=== PATIENT | female | born 1955 | race Caucasian/White ===

== ENCOUNTER 2022-03-18 09:47 | Outpatient (CLI) | payer MEDICARE, BC, SELFPAY ==
--- NOTE | 2022-03-18 11:27 | W.ANESCHARGE ---
Anesthesia Charges Start Date/Time Anesthesia Start Date: 03/18/22 Anesthesia Start Time: 10:45 Stop Date/Time Anesthesia Stop Date: 03/18/22 Anesthesia Stop Time: 11:25 Summary Emergency: No
--- NOTE | 2022-03-18 12:12 | W.ANESCHARGE ---
Anesthesia Charges Start Date/Time Anesthesia Start Date: 03/18/22 Anesthesia Start Time: 10:45 Stop Date/Time Anesthesia Stop Date: 03/18/22 Anesthesia Stop Time: 11:25 Summary Emergency: No
== END 2022-03-18 09:48 | disposition home or self-care (01) ==
LOC: OP CLINIC 09:50
PROVIDERS: PCP Internal Medicine; Visit Provider Surgery
DX: Z12.11 Encounter for screening for malignant neoplasm of colon (principal); K57.30 Diverticulosis of large intestine without perforation or abscess without bleeding; K63.5 Polyp of colon; Z86.010 Personal history of colon polyps
CPT/HCPCS: 45385; 811; 88305; J2405

== ENCOUNTER 2022-06-04 15:13 | Outpatient (CLI) | payer MEDICARE, BC, SELFPAY ==
--- OUTSIDE RECORDS SUMMARY | 2022-06-04 08:36 | XMS_ITS | Clinical Summary ---
:1955 Author Organization [facility] Address [address] [place] [id number] Care Team Providers Name Role Phone EverAmandaFlower Primary Care Provider Allergies Active Allergy Reactions Severity Noted Date Comments Morphine Rash Low 02/01/2018 Medications Medication Sig Dispensed Refills Start Date End Date Status SIMVASTATIN PO Take 10 mg by 0 A ctive mouth multivitamin, Take 1 tablet by 0 Active therapeutic with mouth daily minerals (MULTI-VITAMIN) TABS tablet ASPIRIN PO Take 81 mg by 0 Activ e mouth daily Social History Tobacco Use Types Packs/Day Years Used Date Smoking Tobacco: Never Smokeless Tobacco: Never Sex Assigned at Date Recorded Not on file Last Filed Vital Signs Vital Sign Reading Time Taken Comments Blood Pressure 130/98 02/02/2018 8:18 AM CDT Pulse - - Temperature 36.7 ??C (98 ??F) 02/02/2018 6:25 AM CDT Respiratory Rate 18 02/02/2018 8:18 AM CDT Oxygen Saturation 98% 02/02/2018 8:18 AM CDT Inhaled Oxygen Concentration - - Weight 102.1 kg (225 lb) 02/01/2018 10:00 AM CDT Height 163.8 cm (5' 4.5) 02/01/2018 10:00 AM CDT Body Mass Index 38.02 02/01/2018 10:00 AM CDT Plan of Treatment Not on file Insurance Payer Benefit Plan / Subscriber ID Effective Dates Phone Addre ss Type Group BCBS BCBS OUT OF [id number] 2018-Present [phone] [address] [address] [place] [address] Care Teams Geothermal Powerplant Supervisor Relationship Specialty Start Date End Date Flower Curtis PCP - General Internal Medicine 01/23/18 [facility] [address] [place], [place] [id number]
--- OUTSIDE RECORDS SUMMARY | 2022-06-04 08:36 | XMS_ITS | Encounter Summary ---
:1955 Author Organization [facility] Address [facility] [place] [address] Care Team Providers Name Role Phone Flower Curtis Primary Care Provider Encounter Details Date Type Department Care Team Description 02/02/2018 Hospital Encounter [facility] Yessica Valderrama Preop/Phase MD Tomas II [facility] [address] [place] [address] [phone] [address] [place] [address] (Wo rk) Social History Tobacco Use Types Packs/Day Years Used Date Smoking Tobacco: Never Smokeless Tobacco: Never Sex Assigned at Date Recorded Not on file documented as of this encounter Last Filed Vital Signs Vital Sign Reading [...] Mass Index 38.02 02/01/2018 10:00 AM CDT documented in this encounter Discharge Instructions Discharge Ellie Naylor RN - 02/02/2018 8:14 AM CDT [facility] Discharge Instructions Anesthesia ([facility]) Adult Discharge Instructions For 24 hours after surgery 1. Get plenty of rest. Make arrangements to have a responsible adult stay with you for at least 6 hours after you leave the hospital. 2. Do not drive or use heavy equipment for 24 hours. 3. Do not drink alcohol for 24 hours. 4. Do not sign legal documents or make important decisions for 24 hours. 5. Avoid strenuous or risky activities. You may feel lightheaded. If so, sit for a few minutes before standing. Have someone help you get up. 6. Conscious sedation patients may resume a regular diet.. 7. Any questions of medical nature, call your physician. INSTRUCTIONS FOLLOWING SURGERY DR. HIGH, DR. VALDERRAMA, DR. MARSHALL, DR. LAURA, DR. GERONIMO Will I have pain? Some discomfort is normal and expected following surgery. The first few days after surgery you may need to use prescription pain pills. Taking Advil (Ibuprofen) regularly may help prevent pain. Discomfort should gradually decrease and Tylenol or Advil should be sufficient to relieve pain. A foreign body sensation in the cornea of the eye is very common and caused by sutures placed at surgery.These sutures will go away in one to two weeks. If the pain worsens, you should call the doctor. Do I need to wear an eye patch? You do not need to wear an eye patch at home after the doctor has removed the patch on your first day after surgery. However, you may be more comfortable wearing a patch outside in the sun, when sleeping or napping, or in a zak, windy environment. How much drainage should I have? You may expect a moderate amount of drainage for a week. Gradually the drainage should decrease. Thelids can be cleaned with a clean washcloth and gentle soap or diluted baby shampoo. Wipe the eyelidsgently from the nose outward. Some blood in the tears is a normal finding. Will there be swelling? Some swelling is normal for about a week or two after which it will gradually decrease. Applying a cool compress, using a clean washcloth, for 5 - 10 minutes several times a day may reduce the swellingand make you more comfortable. People may have some swelling of both eyes, especially if face down positioning is required. The white part of the eye may appear very red or bloody for a week or two. This may get worse a few days after surgery. Though the bright red appearance can look frightening, it is a normal finding early after surgery and will resolve in a few weeks. Will I need to use eye drops? You will be using several different kinds of eye drops or ointment (salve) when you leave the hospital. The directions will be on each bottle. The medication with the red top will keep your eye dilatedand may make your eye more sensitive to light. Wearing sunglasses may help. The other medication is a combination antibiotics/steroid to prevent infection and promote healing. Occasionally a third dropis used to control the pressure in your eye. A new bottle of artificial tears or lubricant ointment may be used along with your prescription eye drops after surgery. You will be using drops from four to eight weeks. Bring all eye medications (drops, ointments, or pills) with you to each visit. Always wash your hands before putting in the eye drops. You may wish to have someone else help you. Pull down on the lower lid and squeeze one drop from the bottle being careful not to touch the dropper to your eye or eyelid. One drop is sufficient, but another may be used if the first did not go intothe eye. It is often easier to put in the drops if you are reclining or lying down. Wait five (5) minutes after the first drop before using the second drop to allow the medications to absorb into the eye. How long will it take for my vision to improve? Your vision should gradually improve, but it may take up to six months to regain your best vision. Frequently, air or gas bubbles are injected into the eye at the time of surgery. This will blur your vision significantly at first. As the bubble becomes smaller it will cause a black line in your visionthat moves as you move your head. As the bubble becomes smaller you may notice that it looks more like a bubble or that it will break up into several smaller bubbles. It will take from a few days to a few weeks for the bubble to dissolve and be replaced by clear fluid. You may notice floaters or double vision after your surgery. These symptoms usually will decrease with time. If the double vision is bothersome patching the eye may help. If you notice a sudden worsening in your vision call your doctor. Are there any physical restrictions after surgery? If an air or gas bubble was placed in the eye during surgery you will be asked to spend most of yourtime (both awake and during the night) with your head face down. Strictly for 4 days - keep your face down and Sleep on your stomach or right side with face down. As the eye heals and the bubble dissolves there will be less of a need for you to stay in that specific position. You should avoid sleepingon your back until the bubble has totally dissolved and you have been given permission from your surgeon. You should not fly in an airplane or go in high altitudes in the mountains while there is a bubble in your eye. If you should require any other surgery, under general anesthesia, while you still have an air bubble, have your surgeon or wallpaper scraper contact us prior to your surgery. Some anestheticagents can make the bubble expand and seriously damage your eye. You will have a green medical alertband placed on your wrist for this reason; this should not be removed until the doctor gives you permission or removes it for you. Heavy lifting (greater than 50 pounds), swimming and contact sports should be avoided for about 3 to4 weeks after surgery. You may resume your usual sexual activities about one week after surgery. When may I return to work or my normal activities? Depending on the type of work, you may return to work within a few days. If your work involves physical activity or driving, you will need to restrict your activities and remain home longer. You may watch TV, look at magazines, or work puzzles. Reading may be uncomfortable for several days,but using the eyes will not cause any damage. You may go outside as usual. If conditions are windy or zak wear an eye pad to avoid getting dust or dirt in the eye. Can I travel? You cannot fly in an airplane or drive into the mountains as long as the air or gas bubble remains in your eye. Are there any driving restrictions? Someone will need to drive you home from the hospital. Generally driving can be resumed in several days if you have good vision in your other eye. If you do not feel comfortable driving, do not drive! Your depth perception will be decreased so you will want to try driving during the day in light traffic until you feel comfortable driving. You should restrict your driving while you are taking prescription pain pills as they also can affect your judgment. When can I shower and wash my hair? You may shower or bathe when you get home, but avoid getting water in your eye. You may want someoneto help you shampoo your hair at first. You may shave, brush your teeth, or comb your hair. Do not use make-up, mascara, or creams/lotions around your eyes for several weeks When will I see the doctor again? Generally you will be seen the first day after surgery and again 1-2 weeks later. If you have not received a return appointment before leaving the hospital, you should call our office during the business hours to arrange an appointment. If you will be seeing your local doctor instead of us, you will ne ed to call that office to set up an appointment. How do I reach a doctor if I have concerns? One of our doctors is available by calling in the [place] area, [facility], or from outside the area. After normal office hours the answering service will put you in touch with the doctor news content specialist. The doctors take call from home but are available for aretinal emergency. Please try to call for routine questions and prescription refills during businesshours. You should call your doctor if: ??? You notice a sudden decrease in your vision. ??? Have severe pain or pain increases rather than subsiding. ??? You notice a new black curtain over your eye that is not the gas bubble. If you have any of these symptoms, you may need to be examined. documented in this encounter Medications at Time of Discharge Medication Sig Dispensed Refills Start Date End Date ASPIRIN PO Take 81 mg by mouth 0 daily multivitamin, therapeutic Take 1 tablet by 0 with minerals mouth daily (MULTI-VITAMIN) TABS tablet SIMVASTATIN PO Take 10 mg by mouth 0 documented as of this encounter Miscellaneous Notes Brief Op Note - Yessica Valderrama MD - 02/02/2018 8:02 AM CDT [facility] Brief Operative Note Pre-operative diagnosis: macular hole, left eye Post-operative diagnosis macular hole, left eye Procedure: Procedure(s): LEFT EYE VITRECTOMY PARSPLANA WITH 25 GAUGE SYSTEM, EPIRETINAL MEMBRANE PEEL, AIR FLUID EXCHANGE, INFUSION OF 10% C3F8 GAS - Wound Class: I-Clean Surgeon(s): Surgeon(s) and Role: * Yessica Valderrama MD - Primary Estimated blood loss: * No values recorded between 02/02/2018 7:30 AM and 02/02/2018 7:58 AM * Specimens: * No specimens in log * Findings: As above Op Note - Yessica Valderrama MD - 02/02/2018 8:01 AM CDT Procedure Date: 02/02/2018 DATE OF SURGERY: 02/02/2018 PREOPERATIVE DIAGNOSIS: Full-thickness macular hole, left eye. POSTOPERATIVE DIAGNOSIS: Full-thickness macular hole, left eye. PROCEDURE: 25-gauge pars plana vitrectomy, membrane peel, air-fluid exchange, 10% C3F8 gas exchange,left eye. SURGEON: Yessica Valderrama MD TECHNICIAN PREVENTATIVE MEDICINE: None. ANESTHESIA: Local with monitored anesthesia care. ESTIMATED BLOOD LOSS: Minimum. SPECIMENS: None. COMPLICATIONS: None. INDICATIONS: This patient presented with decreased central vision in the left eye due to a macular hole. Surgical intervention was offered and the patient decided to proceed after the risks, benefits and alternatives were explained. Signed and witnessed informed consent was obtained. DESCRIPTION OF PROCEDURE: The patient was given a retrobulbar block in the preoperative holding area. The patient was taken to the operating room and placed in the supine position. The left eye was prepped and draped in the usual sterile fashion for ophthalmic surgery and a lid speculum was placed. The eye was opened for standard 25-gauge pars plana vitrectomy. The eye was entered with a light pipe and vitrectomy probe, and the BIOM was positioned. A thorough vitrectomy was performed. A posterior vitreous separation was created at the optic disk, and the vitreous was trimmed into the periphery. Attention was turned to the posterior pole. A magnifying contact lens was placed on the cornea. Dilute triamcinolone was injected over the macular surface to highlight the internal limiting membrane. This was peeled from arcade to arcade with 25- gauge forceps. The BIOM was then repositioned and the retinal periphery was inspected with scleral depression. No retinal tears were found. A complete air- fluid exchange was performed with a backflush brush. The vitreous cavity was filled with 10% C3F8 gas. All trocars were removed. The eye was left at physiologic pressure. Subconjunctival injections of Ancef and dexamethasone were placed. Maxitrol and atropine were applied. A sterile eye pad and shield were ta ped into position. The patient was taken to the recovery area in stable condition after tolerating surgery well. She will position face down and will follow up in 1 day. YESSICA VALDERRAMA MD MT: CC Name: KRISTEN DE OLIVEIRA MRN: [id number] Account: [id number] : 1955 Procedure Date: 02/02/2018 Document: [id number] documented in this encounter Plan of Treatment Not on filedocumented as of this encounter Procedures Procedure Name Priority Date/Time Associated Diagnosis Comme nts VITRECTOMY, PARS PLANA 02/02/2018 7:20 AM CDT macular hole APPROACH, USING 25-GAUGE INSTRUMENTS documented in this encounter Visit Diagnoses Not on filedocumented in this encounter Administered Medications Inactive Administered Medications - up to 3 most recent administrations Medication Order MAR Action Action Date Dose Rate Site cyclopentolate (CYCLOGYL) 1 % Given 02/02/2018 6:36 AM CDT 1 joseph p Eye Left ophthalmic solution 1 drop 1 drop, Ophthalmic, EVERY 5 MIN PRIOR TO SURGERY, Starting on Madalyn 02/02/18 at 0600, For 3 doses, Instill into the operative eye(s)., Pre-procedure Given 02/02/2018 6:22 AM CDT 1 drop Eye L eft Given 02/02/2018 6:13 AM CDT 1 drop Eye L eft lactated ringers infusion New Bag 02/02/2018 6:30 AM CDT 25 mL/hr at 25 mL/hr, Intravenous, CONTINUOUS, IF patient NOT on dialysis., Pre-procedure, Starting on Madalyn 02/02/18 at 0630, Until Madalyn 02/02/18 at 1037 lidocaine 1 % 1 mL Given 02/02/2018 6:30 AM CDT 2 mLs 1 mL, Other, EVERY 1 HOUR PRN, mild pain with VAD insertion or accessing implanted port, Starting on Madalyn 02/02/18 at 0629, Do NOT give if patient has a history of allergy to any local anesthetic or any nena product. MAX dose 1 mL subcutaneous OR intradermal in divided doses., Pre-procedure phenylephrine (MYDFRIN Given 02/02/2018 6:37 AM CDT 1 drop Eye Left /JIGNESH-SYNEPHRINE) 2.5 % ophthalmic solution 1 drop 1 drop, Ophthalmic, EVERY 5 MIN PRIOR TO SURGERY, Starting on Madalyn 02/02/18 at 0600, For 3 doses, Instill into the operative eye(s)., Pre-procedure Given 02/02/2018 6:22 AM CDT 1 drop Eye L eft Given 02/02/2018 6:13 AM CDT 1 drop Eye L eft documented in this encounter Active and Recently Administered Medications Times are shown in CDT. Scheduled Medication Order 01/31/2018 02/01/2018 02/02/2018 bupivacaine 0.75% (pf) 4.5mL + lidocaine 2% (pf) 4.5mL + hyaluronidase (HYLENEX) 150 units 0615 (Canceled Entry - Provider: Orders Generic Provider - Comment: Automatically canceled at discontinue of medication order) Retrobulbar, ONCE, Madalyn 02/02/18 at 0615, For 1 dose, Long Block. Retrobulbar Block Anesthetic for operative eye(s). FOR PHYSICIAN USE ONLY. Volume administered to be determined by physician at time of procedure., Pre-procedure cyclopentolate (CYCLOGYL) 1 % ophthalmic solution 1 drop (COMPLE BALWINDER) 0613 (Given - Provider: Nimo Nicole RN)0622 (Given - Provider: Nimo Nicole RN)0636 (Given - Provider: Nimo Nicole RN) 1 drop, Ophthalmic, EVERY 5 MIN PRIOR TO SURGERY, Starting on Madalyn 02/02/18 at 0600, For 3 doses, Instill into the operative eye(s)., Pre-procedure phenylephrine (MYDFRIN /JIGNESH-SYNEPHRINE) 2.5 % ophthalmic solution 1 drop (COMPLETED) 0613 (Given - Provid er: Nimo Nicole RN)0622 (Given - Provider: Nimo Nicole, SHAYY)0637 (Given - Provider: Nimo Nicole RN) 1 drop, Ophthalmic, EVERY 5 MIN PRIOR TO SURGERY, Starting on Madalyn 02/02/18 at 0600, For 3 doses, Instill into the operative eye(s)., Pre-procedure povidone-iodine 5 % ophthalmic solution 0615 (Canceled Entry - Provider: Orders Generic Provider - Comment: Automatically canceled at discontinue of medication order) Ophthalmic, ONCE, Madalyn 02/02/18 at 0615, F or 1 dose, Instill into the operative eye(s), as directed., Pre-procedure Continuous Medication Order 01/31/2018 02/01/2018 02/02/2018 lactated ringers infusion 0630 ( New Bag - Provider: Nimo Nicole RN)0756 (Anesthesia Volume Adjustment - Provider: Reilly Gautam RADIOLOGY MANAGER [facility]) at 25 mL/hr, Intravenous, CONTINUOUS, IF patient NOT on dialysis., Pre- procedure, Starting Madalyn 02/02/18 at 0630, Until Madalyn 02/02/18 at 1037 PRN Medication Order 01/31/2018 02/01/2018 02/02/2018 atropine 1 % ophthalmic solution (CANCELED) 0751 (Given - Provider: Yessica Valderrama MD - Comment: END OF THE CASE) PRN, Starting Madalyn 02/02/18 at 0751, Intra-procedure BSS 500 with EPINEPHrine 1:1000 (PF) 0.3mL (CANCELED) 0732 (Given - Provider: Yessica Valderrama MD) PRN, Starting Madalyn 02/02/18 at 0732, Intra-procedure BSS ophthalmic solution (CANCELED) 0732 (Given - Provider: Yessica Valderrama MD) PRN, Starting Madalyn 02/02/18 at 0732, Intra-procedure bupivacaine 0.75% (pf) 4.5mL + lidocaine 2% (pf) 4.5mL + hyaluronidase (HYLENEX) 150 units (CANCELED) 0733 (Given - Provi bee: Yessica Valderrama MD - Comment: GIVEN IN PREOP BY MD) PRN, Starting Madalyn 02/02/18 at 0733, Intra-procedure ceFAZolin 500 mg??in 5mL sterile water (CANCELED) 0751 (Given - Provider: Yessica Valderrama MD) PRN, Starting Madalyn 02/02/18 at 0751, Intra-procedure dexamethasone (DECADRON) injection (CANCELED) 0751 (Given - Provider: Yessica Valderrama MD) PRN, Administer over 1 Minutes, Starting Madalyn 02/02/18 at 0751, In tra-procedure hypromellose (OCUCOAT) 2 % ophthalmic solution (CANCELED) 0733 (Given - Provider: Yessica Valderrama MD) PRN, Starting Madalyn 02/02/18 at 0733, Intra-procedure lidocaine 1 % 1 mL 0630 (Given - Provider: Nimo Nicole RN) 1 mL, Other, EVERY 1 HOUR PRN, mild pain with VAD insertion or accessing implanted port, Starting Madalyn 02/02/18 at 0629, Do NOT give if patient has a history of allergy to any local anesthetic or any feroz ne product. MAX dose 1 mL subcutaneous OR intradermal in divided doses., Pre-procedure upgukapy-hucgepjym-lxpknmytspznf (MAXITR OL) 0.1 % ophthalmic ointment OINT (CANCELED) 0751 (Given - Provid er: Yessica Valderrama MD - Comment: GIVEN AT THE END OF THE CASE) PRN, Starting Madalyn 02/02/18 at 0751, Intra-procedure triamcinolone (40mg/mL) 0.2mL + 0.6mL BSS (CANCELED) 0734 (Given - Provider: Yessica Valderrama MD) PRN, Starting Madalyn 02/02/18 at 0734, Intra-procedure documented in this encounter Care Teams Farm Equipment Assembler Relationship Specialty Start Date End Date Flower Curtis PCP - General Internal Medicine 01/23/18 [facility] [address] [place] [address] documented as of this encounter
--- OUTSIDE RECORDS SUMMARY | 2022-06-04 08:36 | XMS_ITS | Encounter Summary ---
:1955 Author Organization [place] Address [address] [place] [address]. [address] Care Team Providers Name Role Phone Flower Curtis Primary Care Provider Encounter Details Date Type Department Care Team Description 02/02/2018 Anesthesia Event [facility] Jessica Smalls MD [place] [facility] [address], [address] ANESTHES IOLOGISTS [address] [place] [address] [place] [address] [phone] (Wo rk) Anesthesia Record Procedure Summary Procedure Name Responsible Anesthesia Start Anesthesia Stop Anesthesiologist Time Time LEFT EYE VITRECTOMY Jessica Smalls MD 02/02/18 0717 02/02/18 0759 PARSPLANA WITH 25 GAUGE SYSTEM, EPIRETINAL MEMBRANE PEEL, AIR FLUID EXCHANGE, INFUSION OF 10% C3F8 GAS (Left: Eye) Events Date Time Event Comment 02/02/2018 0707 0717 An Start 0717 Quick Note Continuous monit oring by (HUE Gautam) with sedation for ret robulbar block in preop, spontaneous respirations, ox ygen via nasal cannula. Patient transferred to O R for procedure. 0720 An Start Data 0720 Quick Note Transported from Pre-op to Eye center room #2 0730 AN INCISION 0756 an stop data 0759 An Stop Electronically s igned by Reilly Gautam on February 02, 2018 7:56 AM Name Total dexamethasone 4mg/mL 4 mg fentaNYL (SUBLIMAZE) injection 25 mcg midazolam 1mg/mL 2 mg ondansetron 2mg/mL 4 mg propofol (DIPRIVAN) injection 10 mg/mL vial 50 mg No abx ordered pre-op 1 each lactated ringers infusion 500 mL Agents Name NO HELIOX O2 N2O Air Exp Sevoflurane Exp Isoflurane Exp Desflurane Exp N2O O2 Delivery Device Ins Sevoflurane Ins Isoflurane Ins Desflurane O2 Auxiliary Blood No blood administrations on file. Lines, Drains, and Airways Type Details Placement Removal Incision/Surgical Site 02/02/18; 0735; Left; 02/02/18 0735 by Eye Parul Mccarthy RN Peripheral IV 02/02/18; 0627; 22 G; 02/02/18 0627 by 02/02/18 0822 by Right; Hand; Nimo Nicole Namukasa By joelle Chlorhexidine; SHAYY Argueta RN Injectable; Tolerated well documented in this encounter Social History Tobacco Use Types Packs/Day Years Used Date Smoking Tobacco: Never Smokeless Tobacco: Never Sex Assigned at Date Recorded Not on file documented as of this encounter OR Notes Anesthesia Postprocedure Evaluation - Jessica Smalls MD - 02/02/2018 9:04 AM CDT Patient: Kristen De Oliveira Procedure(s): LEFT EYE VITRECTOMY PARSPLANA WITH 25 GAUGE SYSTEM, EPIRETINAL MEMBRANE PEEL, AIR FLUID EXCHANGE, INFUSION OF 10% C3F8 GAS - Wound Class: I-Clean Diagnosis:macular hole Diagnosis Additional Information: No value filed. Anesthesia Type: MAC Note: Anesthesia Post Evaluation Patient location during evaluation: PACU Patient participation: Able to fully participate in evaluation Level of consciousness: awake Pain management: adequate Airway patency: patent Cardiovascular status: acceptable Respiratory status: acceptable Hydration status: acceptable PONV: none Anesthetic complications: None Last vitals: Vitals: 02/02/18 0635 02/02/18 0800 02/02/18 0818 BP: 144/87 137/80 (!) 130/98 Resp: 18 18 Temp: SpO2: 98% 98% Electronically Signed By: Jessica Smalls MD February 02, 2018 9:04 AM Anesthesia Preprocedure Evaluation - Jessica Smalls MD - 02/02/2018 7:06 AM CDT Anesthesia Evaluation . Pt has had prior anesthetic. History of anesthetic complications - PONV ROS/MED HX ENT/Pulmonary: (+)SUE risk factors obese, , . . (-) sleep apnea Neurologic: Cardiovascular: (+) Dyslipidemia, ----. : . . . :. . METS/Exercise Tolerance: >4 METS Hematologic: Musculoskeletal: GI/Hepatic: (+) GERD Renal/Genitourinary: Endo: (+) Obesity, . Psychiatric: Infectious Disease: Malignancy: Other: Physical Exam Normal systems: dental Airway Mallampati: I TM distance: >3 FB Neck ROM: full Dental Cardiovascular Rhythm and rate: regular and normal Pulmonary breath sounds clear to auscultation Anesthesia Plan History & Physical Review History and physical reviewed and following examination; no interval change. ASA Status: 2 . NPO Status: > 8 hours Plan for MAC with Intravenous induction. Reason for MAC: Procedure to face, neck, head or breast PONV prophylaxis: Ondansetron (or other 5HT-3) and Dexamethasone or Solumedrol Postoperative Care Consents Anesthetic plan, risks, benefits and alternatives discussed with: Patient.. . documented in this encounter Miscellaneous Notes Addendum Note - Reilly Gautam APRN CRNA - 02/27/2018 7:17 AM CDT Addendum created 02/27/18716 by Reilly Gautam APRN CRNA Anesthesia Event edited Anesthesia Care Transfer Note - Reilly Gautam APRN CRNA - 02/02/2018 7:56 AM CDT Patient: Kristen Rubalcava Procedure(s): LEFT EYE VITRECTOMY PARSPLANA WITH 25 GAUGE SYSTEM, EPIRETINAL MEMBRANE PEEL, AIR FLUID EXCHANGE, INFUSION OF 10% C3F8 GAS - Wound Class: I-Clean Diagnosis: macular hole Diagnosis Additional Information: No value filed. Anesthesia Type: MAC Note: Airway :Room Air Patient transferred to:PACU Handoff Report: Identifed the Patient, Identified the Reponsible Provider, Reviewed the pertinent medical history, Discussed the surgical course, Reviewed Intra-OP anesthesia mangement and issues during anesthesia, Set expectations for post-procedure period and Allowed opportunity for questions and acknowledgement of understanding Vitals: (Last set prior to Anesthesia Care Transfer) MANUFACTURING MAINTENANCE MANAGER VITALS 02/02/2018 0726 - 02/02/2018 0756 02/02/2018 NIBP: 145/88 Pulse: 75 NIBP Mean: 117 Ht Rate: 73 SpO2: 100 % Resp Rate (set): 10 Electronically Signed By: Reilly Gautam APRN MANUFACTURING MAINTENANCE MANAGER February 02, 2018 7:56 AM documented in this encounter Plan of Treatment Not on filedocumented as of this encounter Visit Diagnoses Not on filedocumented in this encounter Administered Medications Inactive Administered Medications - up to 3 most recent administrations Medication Order MAR Action Action Date Dose Rate Site dexamethasone (DECADRON) injection Given 02/02/2018 7:17 AM CDT 4 mg PRN, Administer over 1 Minutes, Starting on Madalyn 02/02/18 at 0717, Anesthesia Intra-op fentaNYL (PF) (SUBLIMAZE) injection Given 02/02/2018 7:17 AM CDT 25 mcg PRN, moderate to severe pain, Administer over 3-5 Minutes, Starting on Madalyn 02/02/18 at 0717, Anesthesia Intra-op midazolam (VERSED) injection Given 02/02/2018 7:17 AM CDT 2 mg Administer over 2 Minutes, PRN, anxiety, Starting on Madalyn 02/02/18 at 0717, Anesthesia Intra-op ondansetron (ZOFRAN) injection Given 02/02/2018 7:17 AM CDT 4 mg PRN, nausea, vomiting, Administer over 2-5 Minutes, Starting on Madalyn 02/02/18 at 0717, Anesthesia Intra-op PRE OP antibiotics NOT needed for this Given 02/02/2018 7:17 AM CDT 1 each surgical procedure PRN, Starting on Madalyn 02/02/18 at 0717, Until Madalyn 02/02/18 at 0756, Anesthesia Intra-op propofol (DIPRIVAN) injection 10 mg/mL v ial Given 02/02/2018 7:17 AM CDT 50 mg PRN, Starting on Madalyn 02/02/18 at 0717, Anesthesia Intra-op documented in this encounter Care Teams Oil Expeller Relationship Specialty Start Date End Date Flower Curtis PCP - General Internal Medicine 01/23/18 [facility] [address] [place] [address] documented as of this encounter
--- OUTSIDE RECORDS SUMMARY | 2022-06-04 08:36 | XMS_ITS | Encounter Summary ---
:1955 Author Organization [place] Address [address] [facility] [place] [address] Care Team Providers Name Role Phone Unavailable Primary Care Provider Unavailable Encounter Details Date Type Department Care Team Description 10/04/2006 Results Only [facility] Nishant Earl, [facility] Results [address] [place] [address] (Wo rk) Social History Tobacco Use Types Packs/Day Years Used Date Smoking Tobacco: Never Assessed Sex Assigned at Date Recorded Not on file documented as of this encounter Plan of Treatment Not on filedocumented as of this encounter Procedures Procedure Name Priority Date/Time Associated Diagnosis Comme nts CT ANGIO HEAD Routine 10/04/2006 11:13 AM Resu lts for this WO&W CONTRAST NIP WRAPPER procedure are in the results section. documented in this encounter Results CT ANGIO, HEAD (10/04/2006 11:13 AM NIP WRAPPER) Anatomical Region Laterality Modality Other Specimen (Source) Anatomical Collection Method Collection Time Re ceived Time Location / / Volume Laterality 10/04/2006 11:13 AM NIP WRAPPER Impressions 10/04/2006 7:[address] angiogram of the head with contrast Head CT without contrast History: ??ICA ANEURYSM CREAT .80 ON 09/22 10/26, GFR 80 . Comparison: ??08/07/[address] angio graphy, 08/09/[address] Technique: Initial noncontrast images fr om the skull base to the vertex were obtained, and reviewed in josé ne, brain, and subdural windows. ??CTA: Axial, thin-section imag es were obtained with mild overlap after administration of nonionic contrast material. Images were sent to the [employer] workstation and 3D reconstructions and multiplanar reformats were obtained and performed by the radiologist. The source images, multiplanar reformati ons, and 3D reconstructions in both maximum intensity projection displa y and volume rendered models were viewed. Findings: ?? CT head: On the noncontrast images of th e brain, there is no definite intracranial hemorrhage, mass effect, or midline shift. The ventricles are not enlarged. The ahumada to white yobani er differentiation of the cerebral hemispheres is preserved. Again noted are metallic clips at the level of the supraclinoid segment of left internal carotid artery. There are a few punctate hypodense areas in the inferomedial aspect of the left lentiform nucleus consistent wi th prominent perivascular spaces. These areas are unchanged compar ed to the prior study. Head CTA: Status post clipping of the aneurysm at the level of supraclinoid segment of the left internal carotid art angelita. There is no evidence for residual aneurysm or recurrence. The ant erior communicating artery is patent. Regarding the posterior communic ating arteries, the left posterior communicating artery appears u nremarkable. The right posterior communicating artery is not we ll visualized. Both middle cerebral arteries appear normal. Left an terior cerebral artery is unremarkable. The A2 and A3 segments of the right anterior cerebral artery are not visualized. Basilar arter y and both posterior cerebral arteries are unremarkable. Impression: ?? 1. Metallic aneurysmal clip at the level of the supraclinoid segment of ??the left internal carotid artery an eurysm. There is no evidence of residual or recurrent aneurysm. 2. Head CTA demonstrates no definite ane urysm or stenosis of the major intracranial arteries. 3. No evidence of intracranial hemorrhag e on the noncontrast head CT. I have personally reviewed the image and initial interpretation, and I agree with findings. Nishant Earl MD [facility] documented in this encounter Visit Diagnoses Not on filedocumented in this encounter
--- OUTSIDE RECORDS SUMMARY | 2022-06-04 08:36 | XMS_ITS | Encounter Summary ---
:1955 Author Organization [facility] Address [address] [place] [address] Care Team Providers Name Role Phone Unavailable Primary Care Provider Unavailable Encounter Details Date Type Department Care Team Description 02/01/2008 Historic Results Neurology Clinic Tony Delong MD Building XX NO INFO FOUND XX 1st Floor, Clinic [address] [place] [phone] Social History Tobacco Use Types Packs/Day Years Used Date Smoking Tobacco: Never Assessed Sex Assigned at Date Recorded Not on file documented as of this encounter Plan of Treatment Not on filedocumented as of this encounter Procedures Procedure Name Priority Date/Time Associated Diagnosis Comme nts INR AND PTT PANEL STAT 02/01/2008 10:06 AM Res ults for this CDT procedure are i n the results section. BASIC METABOLIC STAT 02/01/2008 10:06 AM Resul ts for this PANEL CDT procedure are i n the results section. CBC WITH PLATELETS STAT 02/01/2008 10:06 AM Re sults for this CDT procedure are i n the results section. documented in this encounter Results CBC with platelets (02/01/2008 10:06 AM CDT) P athologist Signature MCV 87 78 - 100 fl [facility] MCH 29.7 26.5 - 33.0 [facility] pg MCHC 34.2 31.5 - 36.5 [facility] g/dL RDW 13.0 10.0 - 15.0 [facility] % WBC 8.3 4.0 - 11.0 [facility] 10e9/L RBC Count 4.78 3.8 - 5.2 [facility] 10e12/L Hemoglobin 14.2 11.7 - 15.7 [facility] g/dL Hematocrit 41.5 35.0 - 47.0 [facility] % Platelet Count 270 150 - 450 [facility] 10e9/L Specimen Anatomical Collection Method Collection Time Receive d Time (Source) Location / / Volume Laterality 02/01/2008 10:02/01/2008 6:35 AM CDT AM CDT Tony Delong MD LAB - BLOOD ORDERABLES Performing Organization Address City/State/ZIP Code Phon e Number [facility] (ABNORMAL) Basic metabolic panel (02/01/2008 10:06 AM CDT) P athologist Signature Sodium 141 133 - 144 [place] mmol/L Potassium 4.1 3.4 - 5.3 [facility] mmol/L Chloride 104 94 - 109 [place] mmol/L Carbon Dioxide 25 20 - 32 [facility] mmol/L Glucose 100 (H) 60 - 99 [place] mg/dL Urea Nitrogen 11 7 - 30 [facility] mg/dL Creatinine 0.63 0.52 - [facility] 1.04 mg/dL Comment: New IDMS-traceable calibration beginning 12/21/07 GFR Estimate >90 >60 mL/min/1.7m2 [facility] GFR Estimate If Black >90 >60 mL/min/1.7m2 [facility] Calcium 9.6 8.5 - 10.4 mg/dL [facility] Anion Gap 12 6 - 17 mmol/L [facility] Specimen Anatomical Collection Method Collection Time Receive d Time (Source) Location / / Volume Laterality 02/01/2008 10:02/01/2008 6:35 AM CDT AM CDT Tony Delong MD LAB - BLOOD ORDERABLES Performing Organization Address City/State/ZIP Code Phon e Number [facility] INR AND PTT PANEL (02/01/2008 10:06 AM CDT) P athologist Signature INR 1.01 0.86 - 1.14 [facility] PTT 33 22 - 37 sec [facility] Specimen Anatomical Collection Method Collection Time Receive d Time (Source) Location / / Volume Laterality 02/01/2008 10:02/01/2008 6:35 AM CDT AM CDT Tony Delong MD LAB - BLOOD ORDERABLES Performing Organization Address City/State/ZIP Code Phon e Number [facility] documented in this encounter Visit Diagnoses Not on filedocumented in this encounter
--- OUTSIDE RECORDS SUMMARY | 2022-06-04 08:36 | XMS_ITS | Encounter Summary ---
:1955 Author Organization [facility] Address [address] [place] [address]. [place] [address] Care Team Providers Name Role Phone Unavailable Primary Care Provider Unavailable Encounter Details Date Type Department Care Team Description 12/26/2007 Office Visit-[facility] Neurology Clinic Ammy Collazo MD Building XX NO INFO FOUND XX 1st Floor, Clinic [address] [place] [address] Social History Tobacco Use Types Packs/Day Years Used Date Smoking Tobacco: Never Assessed Sex Assigned at Date Recorded Not on file documented as of this encounter Progress Notes Ammy Collazo I - 12/26/2007 1:00 PM CDT Search Manager: Ammy Collazo Status: Final - Signature Encounter: 26 Dec 2007 Type: Neurology Visit Neurology Clinic [address] [place] [address] 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 HISTORY OF PRESENT ILLNESS: Patient is a 51-year-old pleasant female with history of ruptured left internal carotid artery, supraclinoid aneurysm with coil embolization at [facility] four years ago. The patient presented in a state of unconsciousness from an outside hospital to the [facility]. After the initial CT angiogram, patient was transferred to [facility] for coil embolization of this aneurysm. Patient was transferred back [facility] for the rest of her hospital stay, which was for seven days. Patient did not have any complications or vasospasm following her treatments, and she was neurologically intact. She initially presented with a seizure and was on Dilantin for some time, which she has been off for the last three years. Patient was seen by Dr. Tolentino after her subarachnoid hemorrhage and was discharged two years ago from his clinic. She was seen by Dr. Earl, followed by a CT angiogram. After the angiogram, she was referred to the Vascular Service for further evaluation. Patient states she has continued difficulty with higher executive functioning since her subarachnoidhemorrhage. She denies any other motor difficulties. She denies any severe sudden headaches or sudden neurological change since her incident. Interestingly, the patient's daughter was found to have a left supraclinoid ICA aneurysm around the same time of her diagnosis, for which she also underwent coil embolization. PAST MEDICAL HISTORY: 1. 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 Status post cholecystectomy. Status post lymph node removal from the neck. Status post tubal ligation. FAMILY HISTORY: Significant for a daughter with left supraclinoid ICA aneurysm. She does not recall any other family members with aneurysms. SOCIAL HISTORY: She doesn't smoke or drink. REVIEW OF SYSTEMS: Negative, apart from what is recorded in the HPI. PHYSICAL EXAMINATION: Vital signs: Blood pressure 130/76. Heart rate 84. Patient is alert and oriented x 3 with normal attention and cognition. Language normal. Cranial nerves: Extraocular movements intact. Pupils equal, round, and reactive to light bilaterally. Face is symmetric. Visual kelly intact. Facial sensation is normal. Tongue midline. Shoulder shrug is equal and symmetric. Motor: 5/5 strength in all four extremities without any drift. Normal tone and bulk. Normal sensory examination throughout. Cerebellar: Normal [id number] and rapid alternating movement testing. Gait: Normal heel-toe and tandem walk. 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 1. Left supraclinoid ICA aneurysm. Patient had a recent CT angiogram in September of 2007. I have personally reviewed the images and interpretation in our system. Due to the coil artifact, it is very difficult to clearly see the aneurysm or determine any aneurysm of regrowth. Looking at the records, itseems like patient never had any follow-up catheter angiogram since her coil embolization. At this time, due to the poor visualization of the aneurysm with the CT angiogram, I think it's prudent to obtain a catheter angiogram. I have discussed the risks and benefits of the procedure in detail with thepatient, who agrees to proceed with the cerebral angiogram. We will schedule the patient in the nextcouple of weeks. I have also discussed with the patient, as she has one family member with a cerebral aneurysm, that there might be some increased risk of aneurysm in the rest of her family members. We don't strongly recommend a workup for the rest of the family members, but this can be considered. She is going to discuss this with the rest of her family. We will see the patient in our clinic after the angiogram. Ammy Collazo MD Dictated by Sebastian Lazo MD Resident AQ:dania I was personally present and supervised care through out the visit. Electronically signed by:AMMY COLLAZO M.D. Mar 04 2008 9:22AM [facility] Author documented in this encounter Plan of Treatment Not on filedocumented as of this encounter Visit Diagnoses Not on filedocumented in this encounter
--- OUTSIDE RECORDS SUMMARY | 2022-06-04 08:36 | XMS_ITS | Encounter Summary ---
:1955 Author Organization [facility] Address [address] [place] [address]. [place] [address] Care Team Providers Name Role Phone Unavailable Primary Care Provider Unavailable Encounter Details Date Type Department Care Team Description 10/10/2007 Office Visit-[facility] [place] Neurosurgery Clinic Dorys Guan MD Building [address] [place] [address] 1st Floor, Clinic [address] [place] [address] Social History Tobacco Use Types Packs/Day Years Used Date Smoking Tobacco: Never Assessed Sex Assigned at Date Recorded Not on file documented as of this encounter Progress Notes Dorys Guan - 10/10/2007 10:30 AM CST Coal Gasification Technician: Dorys Guan Status: Final - Signature Encounter: 10 Oct 2007 Type: Neurosurgery Visit Neurology Clinic [address] [place] [address] Clinic [place] [address] Telephone [phone] Fax RE: Kristen De Oliveira : 1955 FLORI: 10/10/2007 OUTPATIENT VISIT NOTE DATE OF ENCOUNTER: October 10, 2007 CHIEF COMPLAINT: A 51-year-old female followup for left ICA aneurysm embolization at [facility]. HISTORY OF PRESENT ILLNESS: Ms. De Oliveira is a 51-year-old pleasant female 4 years status post left supraclinoid and ICA aneurysm embolization at [facility] for which she presented with a state of unconsciousness at an outside hospital. Following admission to the outside hospital she had a full blown seizure. She states no sentinel headaches prior to this event. She states since then she has not had any headaches or seizures. She has been off antiepileptic drugs for the last three years. She was placed on antiepileptic drugs for only one year status post the left ICA leak. She last saw Dr. Tolentino, her neurologist, two years ago who discharged her from his clinic at that time. On September 26 she had a followup CT angiogram. She was last seen in clinic with Dr. Guan on October 18, 2006 at which time she once again had no symptoms. 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 PHYSICAL EXAMINATION: Vital signs: Within normal limits and in the patient's intake form. General: She is sitting in her chair in no acute distress. She is fully oriented. She is capable of immediate recall of 3 objects and recall of all three objects after 5 minutes without any cues. She follows simple and complex commands. Pupils are equal, round and reactive to light. Extraocular muscles are intact without any nystagmus.Facial symmetry at rest upon wrinkling her forehead and smiling and she has facial sensation intact in the V1, V2 and V3 distribution bilaterally. Tongue is midline on protrusion. Her shoulder shrug isfull and symmetric. She has no pronator drift bilaterally. She has full strength in the upper and lower extremity muscle groups bilaterally. Her gait is within normal limits and she has no difficulty with tandem walking. IMAGING: CTA done September 26, 2007 shows no subarachnoid hemorrhage and no new aneurysm. ASSESSMENT: Ms. De Oliveira is a 51-year-old female 4 years status post subarachnoid hemorrhage followingruptured left supraclinoid ICA aneurysm which was embolized at that time at [facility] who is currently asymptomatic but who has a significant family history of aneurysms and whose daughter also has an aneurysm. PLAN: She should be followed up and will be followed up in the neurointerventional clinic in the next few months. Otherwise, she should only follow up with us in clinic on an as needed basis. I have personally examined the patient, reviewed and edited the resident's note and agree with the plan of care. Dorys Guan MD DEPARTMENT OF NEUROSURGERY Dictated by Meg Saunders M.D., Resident CHL:dominique Electronically signed by:DORYS GUAN M.D. Oct 17 2007 9:46AM COMMUTATOR TESTER UTATOR TESTER documented in this encounter Plan of Treatment Not on filedocumented as of this encounter Visit Diagnoses Not on filedocumented in this encounter
--- OUTSIDE RECORDS SUMMARY | 2022-06-04 08:36 | XMS_ITS | Encounter Summary ---
:1955 Author Organization [place] Address [facility] [place] [address] Care Team Providers Name Role Phone Unavailable Primary Care Provider Unavailable Encounter Details Date Type Department Care Team Description 02/01/2008 Results Only [facility] Tony Delong, [facility] Results XX NO INFO FOUND XX [place] [id number] Social History Tobacco Use Types Packs/Day Years Used Date Smoking Tobacco: Never Assessed Sex Assigned at Date Recorded Not on file documented as of this encounter Plan of Treatment Not on filedocumented as of this encounter Procedures Procedure Name Priority Date/Time Associated Comments Diagnosis [facility] ANGIOGRAPHY Routine 02/01/2008 12:56 Results for this CAROTID CEREBRAL PM CDT procedure a re in BILATERAL the results section. documented in this encounter Results ANGIO CAROTD-CEREBRL BILAT (02/01/2008 12:56 PM CDT) Anatomical Region Laterality Modality Other Specimen (Source) Anatomical Collection Method Collection Time Re ceived Time Location / / Volume Laterality 02/01/2008 12:56 PM CDT Impressions 02/01/2008 5:24 PM CDT PROCEDURE: Three-vessel diagnostic angio graphy. 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 Patient is here for diagnostic angiography. She denies any neurological symptoms. Brim Pouncing Machine Operator: Tony Delong MD Calciner Operator Helper: Renetta Culp time: 6.5min Contrast: 75cc opti 240 Technique/findings: Patient was brought to the angiography suite, prepped and draped in a sterile fashion. Right common femoral artery was palpated and accessed by a 19-gauge needle. The needle was exchanged over the wire with the 5 Frenc h sheath. The sheath was connected to the continuous, heparinized , pressurized heparinized saline flush system. Through the sheath a 5 [place] angle-glide catheter was advanced with 0.035 inches guidewire and abdominal and thoracic aorta. Right common carotid artery: Cervical vi ew Under fluoroscopic guidance and using ro admap techniques the catheter was advanced into the right common carot id artery, biplane angiography was performed over neck. Cervical view o f right common carotid artery in the AP and lateral projections demons trate normal distal common carotid artery is bifurcation. Right ext ernal and internal carotid artery in the cervical segment is normal . There is no stenosis noted. Right internal carotid artery: Intracran ial view Under fluoroscopic guidance and using ro admap techniques the catheter was advanced right internal carotid cinda ry. Biplane angiography was performed over cranium. Intracranial vie w of right internal carotid artery in the AP, lateral and oblique pr ojections demonstrate normal petrous, cavernous and supraclinoid segm ent of right internal carotid artery. It terminates into anterior and middle cerebral artery. There is some cross-filling into the left ante rior cerebral artery distribution. There is no aneurysm, sten osis and AVM noted. Left common carotid artery: Cervical vie w Under fluoroscopic guidance and using ro admap techniques the catheter was advanced into left common carotid ar ann marie. Biplane angiography was performed over cranium. Cervical view of left common carotid artery in the AP and lateral projections demonstra te normal distal common carotid artery and its bifurcation. Left external and internal carotid artery in the cervical segment is normal . Left internal carotid artery: Intracrani al view Under fluoroscopic guidance and using ro admap techniques the catheter was advanced into left internal carotid artery. Biplane angiography was performed over cranium. Intracranial view of left internal carotid artery in the AP, lateral, oblique and 3 -D projections (which was reconstructed in a separate workstation) was performed which demonstrate normal petrous, cavernous an d supraclinoid segment of left internal carotid artery. The previously placed coil in the supraclinoid segment of left internal ca rotid artery is visualized. There is no coil mass herniation, there is no aneurysm regrowth noted. Internal carotid artery terminates into anterior and middle cerebral artery. All the distal branches are pacheco nt. There is no aneurysm noted. Left subclavian artery: Thoracic view Under fluoroscopic guidance and using ro admap techniques the catheter was advanced into left subclavian artery , angiography was performed over thorax. Thoracic view of left subcl rip artery in the AP projection demonstrate normal subclavian artery and its branches and there is no stenosis at the origin of le ft vertebral artery. Left vertebral artery: Intracranial view Under fluoroscopic guidance and using ro admap techniques the catheter was advanced into left vertebral artery, biplane angiography was performed over cranium. Intracranial vie w of left vertebral artery in the AP and lateral projections demonstra te normal extradural and intradural segment of left vertebral art angelita. Left PICA is well visualized. Basilar artery is patent and terminates into bilateral posterior cerebral artery. There is retr ograde filling of right vertebral artery and right PICA is well visualized. There is no stenosis, aneurysm and AVM noted. At the end of the procedure the catheter and the sheath were removed and exchanged with a 6 [place] starclose with good hemostasis. Disposition: Patient was transferred to under stable neurological conditions. Dr. Delong was present during the entir e procedure. Findings/Impression: 1. Infundibulum at the origin of bilater al posterior communicating arteries. 2. Stable coil mass within the left ICA aneurysm with no aneurysm regrowth. I have personally reviewed the image and initial interpretation and agree with the findings. Tony Delong MD SPECIAL IMAGING STUDIES documented in this encounter Visit Diagnoses Not on filedocumented in this encounter
--- OUTSIDE RECORDS SUMMARY | 2022-06-04 08:36 | XMS_ITS | Encounter Summary ---
:1955 Author Organization [place] Address [address] [place] [address] Care Team Providers Name Role Phone Unavailable Primary Care Provider Unavailable Encounter Details Date Type Department Care Team Description 12/26/2007 Office Visit-[facility] Neurology Clinic Unknown, Provider Fredy [facility] 1st Floor, Clinic [address] [place] [address] [phone] Social History Tobacco Use Types Packs/Day Years Used Date Smoking Tobacco: Never Assessed Sex Assigned at Date Recorded Not on file documented as of this encounter Progress Notes Unknown, Provider - 12/26/2007 1:00 PM CDT Heavy Forger Helper: Chase Nahomi Status: Final Encounter: 26 Dec 2007 Type: Neurology Nurse Note Reason For Visit Reason for Visit/Chief Complaint: Bethel Stone CMA. Are you diabetic? No Do you have any other appointments of any type today within the [facility] system? (this includes clinic appt's, Imaging, labs, procedures etc.) No. Allergies Codeine Derivatives; Adverse Reaction; Itching,Nausea Morphine Derivatives; Adverse Reaction; Itching,Rash. Current Meds Bethel Stone CMA reviewed current medications with patient. Tylenol 325 MG Tablet;TAKE 1 TO 2 TABLETS EVERY 4 HOURS NEEDED; RPT AAA-MED RECONCILE;per patient; RPT Ibuprofen 200 MG Tablet;TAKE 2 TABLET EVERY 6 HOURS PRN; RPT. Vital Signs Recorded by jb on 26 Dec 2007 12:41 PM BP:130/76, RUE, Sitting, HR: 84 b/min, Resp: 18 r/min, Normal, Height: 65 in, Weight: 232.0 lb, BMI: 38.6 kg/m2. Pain Assessment Current history of pain associated with this visit is denied. Smoking Assessment No secondhand cigarette smoke exposure. No tobacco use. Signature Electronically Signed By: Nahomi Stone SPANISHER; 12/26/2007 12:44 PM COAL PULVERIZING OPERATOR. documented in this encounter Plan of Treatment Not on filedocumented as of this encounter Visit Diagnoses Not on filedocumented in this encounter
--- OUTSIDE RECORDS SUMMARY | 2022-06-04 08:36 | XMS_ITS | Encounter Summary ---
:1955 Author Organization [place] Address [facility] [place] [address] Care Team Providers Name Role Phone Flower Curtis Primary Care Provider Encounter Details Date Type Department Care Team Description [facility]/02/2018 [facility] [place] PeriOP MD Tomas PARSPLANA WITH 25 GAUGE Services VITREORETINAL SYSTEM, EPIRETINAL [address] SURGERY MEMBRANE PEEL, AIR FLUID LL[address] EXCHANGE, INFUSION OF ALEXIS GONZALEZ [id number] LINDSEY 310 10% C3F8 GAS [phone] ALEXIS GONZALEZ [id number] (Wo rk) Surgery Details Date/Time Status Location OR Service Patient Case Case Traum a Class Class Type Case? 02/02/18 7:20 Posted [place] [address] [facility] AM Panel 1 Procedure LRB Anes Op Region Wound Class Commen ts LEFT EYE VITRECTOMY Left MAC with Retrobulbar Eye I-Rin n LEFT EYE VITRECTOMY PARSPLANA WITH 25 PARSPLA NA WITH 25 GAUGE SYSTEM, GAUGE SYSTE M, EPIRETINAL MEMBRANE EPIRE TINAL MEMBRANE PEEL, AIR FLUID PEEL, AIR FLUID EXCHANGE, INFUSION EXCHAN GE, INFUSION OF 10% C3F8 GAS OF 10% C3 F8 GAS Surgeon Surgeon Role Service Panel Yessica Valderrama MD Primary Ophthalmology 1 documented in this encounter Social History Tobacco [...] documented in this encounter Discharge Instructions Discharge InstructionsEllie Gates RN - 02/02/2018 8:14 AM CDT [facility] Discharge Instructions Anesthesia [...] an air bubble, have your surgeon or racket stringer contact us prior to your surgery. Some [...] doctors is available by calling in the [facility], [facility], or from outside the area. After normal office hours the answering service will put you in touch with the doctor elementary education teacher. The doctors take call from home but [...] Valderrama MD - 02/02/2018 8:02 AM CDT [facility] Brief Operative Note Pre-operative diagnosis: macular [...] gas exchange,left eye. SURGEON: Yessica Valderrama MD PILE DRIVING NOZZLEMAN: None. ANESTHESIA: Local with monitored anesthesia care. [...] MD MT: CC Name: KRISTEN DE OLIVEIRA Account: [id number] : 1955 Procedure Date: 02/02/2018 Document: [id number] documented in this encounter Plan of Treatment [...] MAR Action Action Date Dose Rate Site atropine 1 % ophthalmic Given 02/02/2018 7:51 AM CDT 1 drop Eye Left solution PRN, Starting on Madalyn 02/02/18 at 0751, Intra-procedure BSS 500 with EPINEPHrine 1:1000 (PF) Given 02/02/2018 7:32 AM CD T 500 mLs Eye Left 0.3mL PRN, Starting on Madalyn 02/02/18 at 0732, Intra-procedure BSS ophthalmic solution Given 02/02/2018 7:32 AM CDT 15 mLs Eye L eft PRN, Starting on Madalyn 02/02/18 at 0732, Intra-procedure bupivacaine 0.75% (pf) 4.5mL + Given 02/02/2018 7:33 AM CDT 7 mL s Eye Left lidocaine 2% (pf) 4.5mL + hyaluronidase (HYLENEX) 150 units PRN, Starting on Madalyn 02/02/18 at 0733, Intra-procedure ceFAZolin 500 mg??in 5mL sterile Given 02/02/2018 7:51 AM CDT 0. 5 mLs Eye Left water PRN, Starting on Madalyn 02/02/18 at 0751, Intra-procedure cyclopentolate (CYCLOGYL) 1 % Given 02/02/2018 6:36 AM CDT 1 joseph p Eye Left ophthalmic solution 1 drop 1 drop, Ophthalmic, EVERY 5 MIN PRIOR TO SURGERY, Starting on Madalyn 02/02/18 at 0600, For 3 doses, Instill into the operative eye(s)., Pre-procedure Given 02/02/2018 6:22 AM CDT 1 drop Eye L eft Given 02/02/2018 6:13 AM CDT 1 drop Eye L eft dexamethasone (DECADRON) injection Given 02/02/2018 7:51 AM CDT 5 mg Eye L eft PRN, Administer over 1 Minutes, Starting on Madalyn 02/02/18 at 0751, Intra-procedure hypromellose (OCUCOAT) 2 % ophthalmic Given 02/02/2018 7:33 AM C DT 1 mL Eye Left solution PRN, Starting on Madalyn 02/02/18 at 0733, Intra-procedure lactated ringers infusion New Bag 02/02/2018 6:30 [...] subcutaneous OR intradermal in divided doses., Pre-procedure gkbprizo-avqpjywjo-uumqtewnxiuns Given 02/02/2018 7:51 AM 1 Tube Eye Left (MAXITROL) 0.1 % ophthalmic ointment OIN T CDT PRN, Starting on Madalyn 02/02/18 at 0751, Intra-procedure phenylephrine (MYDFRIN Given 02/02/2018 6:37 AM CDT 1 drop Eye Left /JIGNESH-SYNEPHRINE) 2.5 % ophthalmic solution 1 drop 1 drop, Ophthalmic, EVERY 5 MIN PRIOR TO SURGERY, Starting on Madalyn 02/02/18 at 0600, For 3 doses, Instill into the operative eye(s)., Pre-procedure Given 02/02/2018 6:22 AM CDT 1 drop Eye L eft Given 02/02/2018 6:13 AM CDT 1 drop Eye L eft triamcinolone (40mg/mL) 0.2mL + 0.6mL Given 02/02/2018 7:34 AM C DT 0.8 mLs Eye Left BSS PRN, Starting on Madalyn 02/02/18 at 0734, Intra-procedure documented in this encounter Active and Recently [...] Nicole RN)0622 (Given - Provider: Nimo Nicole RN)0637 (Given - Provider: Nimo Nicole RN) 1 [...] (Anesthesia Volume Adjustment - Provider: Reilly Gautam APRN CORE BLOWER OPERATOR) at 25 mL/hr, Intravenous, CONTINUOUS, IF patient [...] subcutaneous OR intradermal in divided doses., Pre-procedure yhpsyfaf-fihxlgcfs-epruioirksmmt (MAXITR OL) 0.1 % ophthalmic ointment OINT (CANCELED) 0751 (Given - Provid er: Yessica Valderrama MD - Comment: GIVEN AT THE END OF THE CASE) PRN, Starting Madalyn 02/02/18 at 0751, Intra-procedure triamcinolone (40mg/mL) 0.2mL + 0.6mL BSS (CANCELED) 0734 (Given - Provider: Yessica Valderrama MD) PRN, Starting Madalyn 02/02/18 at 0734, Intra-procedure documented in this encounter Care Teams Electrolysis Operator Relationship Specialty Start Date End Date Flower Curtis PCP - General Internal Medicine 01/23/18 [facility] [address] [place] [address] documented as of this encounter
--- OUTSIDE RECORDS SUMMARY | 2022-06-04 08:36 | XMS_ITS | Encounter Summary ---
:1955 Author Organization [place] Address [address] [facility] [place] [address] Care Team Providers Name Role Phone Unavailable Primary Care Provider Unavailable Encounter Details Date Type Department Care Team Description 09/26/2007 Results Only [facility] Nishant Earl, [facility] Results [address] [place] [address] (Wo rk) Social History Tobacco Use Types Packs/Day Years Used Date Smoking Tobacco: Never Assessed Sex Assigned at Date Recorded Not on file documented as of this encounter Plan of Treatment Not on filedocumented as of this encounter Procedures Procedure Name Priority Date/Time Associated Diagnosis Comme nts CT ANGIO HEAD Routine 09/26/2007 10:59 AM Resu lts for this WO&W CONTRAST PROCESS ENGINEER procedure are in the results section. documented in this encounter Results CT ANGIO, HEAD (09/26/2007 10:59 AM PROCESS ENGINEER) Anatomical Region Laterality Modality Other Specimen (Source) Anatomical Collection Method Collection Time Re ceived Time Location / / Volume Laterality 09/26/2007 10:59 AM PROCESS ENGINEER Impressions 09/26/2007 4:[address] Angio of the Head 09/26/2007 Image postprocessing by the Radiologist CT of the head without contrast CT angiogram of the head with contrast Reconstruction by the Radiologist on the 3D workstation History: Status post coiling of left int ernal cerebral artery aneurysm. Comparison: ??Head CT same day. Technique: HEAD CT: ??Initial axial thin section CT images of the head were obtained from the skull base to the vert ex without intravenous contrast and reviewed in bone, brain, an d subdural windows. ?? CTA: Following rapid bolus intravenous i njection of nonionic contrast material, axial images were obtained usi ng thin collimation multidetector helical technique from the base of the skull through the [place] of [place]. This CT angiogram data was reconstructed at thin intervals with mild overlap. Images were sent to the Smart Plate workstation, and 3D and multiplanar nik nstructions were performed by the technologist and the radiologist. Th e source images, multiplanar reformations, and 3D reconstructions in both maximum intensity projection display and volume rendered m odels were reviewed. Findings: Head CT: There is no evidence of intracr anial hemorrhage, mass effect, or midline shift ??. Mcfarland/white matter d ifferentiation in both cerebral hemispheres is preserved ??. There is mi ld patchy low attenuation within the periventricular and supravent ricular white matter of both cerebral hemispheres, , nonspecific but most likely representing chronic small vessel ischemic disease, g iven the patient's age ??. ??The ventricles and sulci are enlarged but wi thin normal for the patient's age, and the ventricles are not out of p roportion to the sulci ??. Metallic streak artifacts are seen throu gh the metallic coils placed in the left internal cerebral artery ane urysm in the left cavernous sinus region. The visualized portions of the paranasal sinuses and mastoid air cells are clear ??. ? Head CTA demonstrates irregular and hemo dynamically insignificant narrowing of the terminal portion of bas ilar artery. Both posterior communicating arteries and anterior comm unicating artery appears patent. Terminal portion of A1 segment o f right congestive artery appears narrow. The anterior temporal br anch, M2 and M3 segments of right middle cerebral artery show multip le areas of intermittent narrowing. Similarly M2 and M3 segments of left middle cerebral artery also show multifocal areas of narrowing. These findings are unchanged since previous study and could be second burt to atherosclerotic changes. Small infundibuli are seen at t he origin of posterior communicating arteries bilaterally, stab le since previous study. Impression: 1. No evidence of intracranial hemorrhag e on the noncontrast head CT . 2. Multifocal short segment narrowings a re seen in the M1 and M2 segments of both middle cerebral artery as well as right anterior temporal artery. Similar, hemodynamicall y insignificant irregular narrowing is seen in the terminal portio n of basilar artery. These may be secondary to atherosclerosis. Infundi buli are seen at the origin of posterior communicating arteries. These findings are stable since previous study. I have personally reviewed the image and initial interpretation, and I agree with findings. Nisahnt Earl MD SPECIAL IMAGING STUDIES documented in this encounter Visit Diagnoses Not on filedocumented in this encounter
--- OUTSIDE RECORDS SUMMARY | 2022-06-04 08:36 | XMS_ITS | Encounter Summary ---
:1955 Author Organization [place] Address [address] [facility] [place] [address] Care Team Providers Name Role Phone Unavailable Primary Care Provider Unavailable Encounter Details Date Type Department Care Team Description 10/04/2006 Historic [place] [id number] [place] [address] (Wo rk) Social History Tobacco Use Types Packs/Day Years Used Date Smoking Tobacco: Never Assessed Sex Assigned at Date Recorded Not on file documented as of this encounter Plan of Treatment Not on filedocumented as of this encounter Procedures Procedure Name Priority Date/Time Associated Diagnosis Comme nts CREATININE STAT 10/04/2006 9:50 AM Results f or this FLUTE POLISHER procedure are i n the results section . documented in this encounter Results Creatinine (10/04/2006 9:50 AM FLUTE POLISHER) P athologist Signature Creatinine 0.80 0.60 - MISYS 1.30 mg/dL GFR Estimate 80 >60 MISYS mL/min/1.7 m2 GFR Estimate If >90 >60 MISYS Black mL/min/1.7 m2 Specimen Anatomical Collection Method Collection Time Receive d Time (Source) Location / / Volume Laterality 10/04/2006 9:50 AM 7 FLUTE POLISHER 10:25 AM FLUTE POLISHER Pelon Shelton MD LAB - BLOOD ORDERABLES Performing Organization Address City/State/ZIP Code Phon e Number MISYS documented in this encounter Visit Diagnoses Not on filedocumented in this encounter
--- OUTSIDE RECORDS SUMMARY | 2022-06-04 08:36 | XMS_ITS | Encounter Summary ---
:1955 Author Organization [place] Address [address] [place] [address]. [place] [address] Care Team Providers Name Role Phone Unavailable Primary Care Provider Unavailable Encounter Details Date Type Department Care Team Description 10/10/2007 Office Visit-[facility] Neurosurgery Clinic Provider, [facility] Nurse GagePablo [facility] 1st Floor, Clinic [address] [place] [phone] Social History Tobacco Use Types Packs/Day Years Used Date Smoking Tobacco: Never Assessed Sex Assigned at Date Recorded Not on file documented as of this encounter Progress Notes Provider, [facility] Nurse - 10/10/2007 10:30 AM CST Art Framing Manager: Traci Monsivais Status: Final Encounter: 10 Oct 2007 Type: Neurosurgery Nurse Note Reason For Visit Reason for Visit: Here today for follow up on CT angio 09/26/2007 Do you have any other appointments of any type today within the [facility] system? (this includes clinic appt's, Imaging, labs, procedures etc.) No Dr. Tonja Maria. Allergies Codeine Derivatives; Adverse Reaction; Itching,Nausea Morphine Derivatives; Adverse Reaction; Itching,Rash. Current Meds The medications listed below were reviewed and updated with patient by [ JOY Waddell at time of provider visit on October 10, 2007 at 10:42. Tylenol 325 MG Tablet;TAKE 1 TO 2 TABLETS EVERY 4 HOURS NEEDED; RPT AAA-MED RECONCILE;per patient; RPT Ibuprofen 200 MG Tablet;TAKE 2 TABLET EVERY 6 HOURS PRN; RPT. 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 Vital Signs Recorded by griselda on 10 Oct 2007 10:44 AM BP:125/82, LUE, Sitting, HR: 71 b/min, Resp: 20 r/min, Height: 65 in, Weight: 232 lb, BMI: 38.6 kg/m2, Pain Scale: 0. Pain Assessment Current history of pain associated with this visit is denied. Smoking Assessment No secondhand cigarette smoke exposure. No tobacco use. Signature Signed By: Traci Monsivais MA; 10/10/2007 10:46 AM GAS METER READER. documented in this encounter Plan of Treatment Not on filedocumented as of this encounter Visit Diagnoses Not on filedocumented in this encounter
--- OUTSIDE RECORDS SUMMARY | 2022-06-04 08:36 | XMS_ITS | Encounter Summary ---
:1955 Author Organization [place] Address [address] [place] [address] Care Team Providers Name Role Phone Unavailable Primary Care Provider Unavailable Encounter Details Date Type Department Care Team Description 02/01/2008 Historic Results Neurology Clinic Tony Delong MD Building XX NO INFO FOUND XX 1st Floor, Clinic [address] [place] [address] Social History Tobacco Use Types Packs/Day Years Used Date Smoking Tobacco: Never Assessed Sex Assigned at Date Recorded Not on file documented as of this encounter Plan of Treatment Not on filedocumented as of this encounter Procedures Procedure Name Priority Date/Time Associated Diagnosis Comme nts EKG 12 LEAD Routine 02/01/2008 9:25 AM Results f or this CDT procedure are i n the results section . documented in this encounter Results EKG 12 LEAD (02/01/2008 9:25 AM CDT) Component Value Ref Range Test Analysis Performed Pathologis t Method Time At Signature Ventricular Rate 72 BPM RADIOLOGY RESULTS Atrial Rate 72 BPM RADIOLOGY RESULTS MS Interval 158 ms RADIOLOGY RESULTS QRS Duration 96 ms RADIOLOGY RESULTS QT 412 ms RADIOLOGY RESULTS QTc 451 ms RADIOLOGY RESULTS P [place] 57 degrees RADIOLOGY RESULTS R AXIS 12 degrees RADIOLOGY RESULTS T [place] 49 degrees RADIOLOGY RESULTS Interpretation Sinus rhythm RADIOLOGY ECG Normal ECG RESULTS When compared with ECG of 07-AUG-2004 22:33, No significant change was found Specimen Anatomical Collection Method Collection Time Receive d Time (Source) Location / / Volume Laterality 02/01/2008 9:25 AM 8 9:18 CDT AM CDT Tony Delong MD ECG ORDERABLES Performing Organization Address City/State/ZIP Code Phon e Number RADIOLOGY RESULTS documented in this encounter Visit Diagnoses Not on filedocumented in this encounter
--- OUTSIDE RECORDS SUMMARY | 2022-06-04 08:36 | XMS_ITS | Clinical Summary ---
:1955 Author Organization [employer] [facility] [place] [address] Care Team Providers Name Role Phone Unknown, Doctor Primary Care Provider Unavailable Allergies Active Allergy Reactions Severity Noted Date Comments Codeine Hives, Itching 11/18/2006 Morphine 11/18/2006 Feels like bugs crawling on her. 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) 11/18/2006 Overview: Cerebral 07/2004 Encounters Date Type Specialty Care Team Description 03/18/2022 Lab Requisition Villa Estevez MD from Last 3 Months Immunizations Name Administration Dates Next Due AMB Influenza, IIV3 (Age >=3 years)(Flu Clinic Only) 008 Social History Tobacco Use Types Packs/Day Years Used Date Never Smoker Comments: passive when a child Alcohol Use Standard Drinks/Week Comments No 0 (1 standard drink = 0.6 oz pure alcoho l) Sex Assigned at Date Recorded Not on file Obstetrics History Last Filed Vital Signs Vital Sign Reading Time Taken Comments Blood Pressure 125/80 04/12/2012 2:01 PM CDT Pulse 80 04/12/2012 2:01 PM CDT Temperature 36.6 ??C (97.9 ??F) 04/12/2012 2:01 PM CDT Respiratory Rate - - Oxygen Saturation 96% 12/03/2009 1:18 PM CDT Inhaled Oxygen Concentration - - Weight 109.3 kg (241 lb) 04/12/2012 2:01 PM CDT Height - - Body Mass Index - - Plan of Treatment Health Maintenance Due Date Last Done Comments COVID-19 vaccine series (#1) 06[birth year]17/1956 Tdap 1965 Depression screening for age 12+ 1966 BMI (ht and wt on same day) for age 18+ 1972 Hepatitis C screening for age 18-79 1972 Tetanus booster 1974 Colonoscopy through age 75 12/17/1999 Lipids for age 45-75 12/17/1999 Mammogram for age 45-75 12/17/1999 Zoster (shingles) series for age 50+ (1 of 2) 2004 DEXA/DXA scan for age 65+ 12/17/2019 Pneumococcal series for age 65+ (1 - PCV) 12/17/2019 Influenza for age 65+ 04/22/2022 06/19/2008 Procedures Procedure Name Priority Date/Time Associated Diagnosis Comme nts LAB TRACKING EVENT Routine 03/18/2022 11:05 AM CDT PATH TISSUE EXAM Routine 03/18/2022 11:05 AM Resu lts for this CDT procedure are i n the results section. from Last 3 Months Results LAB TRACKING EVENT (03/18/2022 11:05 AM CDT) Specimen Anatomical Collection Method Collection Time Receive d Time (Source) Location / / Volume Laterality Other (Other) Client Collect / 03/18/2022 11:05 2021 9:44 Unknown AM CDT PM CDT Villa Estevez MD LAB BILL ONLY Performing Organization Address City/State/ZIP Code Phon e Number [employer] [address] [place], [place] [address] [place] [address] LABORATORY-CENTRAL 1999 LABORATORY PATH TISSUE EXAM (03/18/2022 11:05 AM CDT) Component Value Ref Test Analysis Performed At [facility] gist Range Method Time Signature Case Report Pathology Report ?Case: [id number] ? 03/22/2022 DARIANA Authorizing Provider: ??Villa Dejesus MD ?Collected: ? 03/18/2022 1105 ? 8:03 AM CDT HEALTH Ordering Location: ? [facility] CENTRAL LAB ?Received: ?03/19/2022 0956 ? MARTIN SONI Pathologist: ? Tab Beauchamp, ? ENTRAL ? MD ? LABORATORY Specimens: ?? A) - Cecum Bio psy ? B) - Asce nding Colon Biopsy ? Final A) COLON, CECUM, POLYPECTOMY: 03/22/2022 [facility] Electronically Diagnosis 1. Normal colonic mucosa; ly mphoid aggregates present (clinically, 2 polyps) 8:03 AM CDT HEALTH signed by 2. Negative for serrated change, dysplasia, and malignancy LABORATORY-C CYN Beauchamp tto, B) COLON, ASCENDING, POLYPECTOMY: LABORATORY MD on 03/22/2022 1. Normal colonic mucosa; lymphoid aggregate present (clinic ally, 1 polyp) at 8:03 AM 2. Negative for serrated change, dysplasia, and malignancy Clinical Ms. De Oliveira is a 03/22/2022 [facility] Information 66 y.o. 8:03 AM [facility] undergoing high LABORATORY-C risk colon ENTRAL cancer LABORATORY surveillance due to a personal history of colon polyps. Gross A) Received in formalin are 3 shrestha mucosal fragments averaging 4 mm in greatest dimension, which are entirely submitted in one cassette. It is labeled with the patient's name and designated cecum polyps. 03/22/2022 [facility] Description 8:03 AM [facility] B) Received in formalin is a shrestha mucosal fragment measuring 3 mm in greatest dimension, which is entirely submitted in one cassette. It is labeled with the patient's name and designated ascending colon polyp. LABORATORY-C CYN Frey 03/19/2022 10:16 AM LABORATORY Microscopic The final 03/22/2022 [facility] Description diagnosis is 8:03 AM [facility] based on LABORATORY-C microscopic ENTRAL examination of LABORATORY appropriate sections of all specimens. Additional 03/22/2022 [facility] Information Interpreted at [facility], Central Laboratory - [address], [place] [address] 8:03 AM [facility] LABORATORY-C ENTRAL LABORATORY Specimen Anatomical Collection Method Collection Time Receive d Time (Source) Location / / Volume Laterality Other (Cecum 03/18/2022 11:05 03/19/2022 9:56 Biopsy) AM CDT AM CDT Specimen 03/18/2022 11:05 03/19/2022 9:56 (specimen) AM CDT AM CDT (Ascending Colon Biopsy) Villa Estevez MD PATHOLOGY/CYTOLOGY Performing Organization Address City/State/ZIP Code Phon e Number [employer] [address] [place] [address] LABORATORY-CENTRAL 2000 LABORATORY from Last 3 Months Insurance Payer Benefit Plan / Subscriber ID Effective Dates Phone Addre ss Type Group [employer] [id number] 2011-Present [address] [place] [id number] [facility] (Home) [phone] [place], [place] (Work) [phone] Care Teams Drupal Web Developer Relationship Specialty Start Date End Date Unknown, Doctor PCP - General 10/13/06 .
--- OUTSIDE RECORDS SUMMARY | 2022-06-04 08:37 | XMS_ITS | Encounter Summary ---
:1955 Author Organization [place] Address [address] [place] [address] Care Team Providers Name Role Phone Unavailable Primary Care Provider Unavailable Encounter Details Date Type Department Care Team Description 08/07/2004 Results Only [facility] Results Pedro Earl MD [facility] [place] [address] (Wo rk) Social History Tobacco Use Types Packs/Day Years Used Date Smoking Tobacco: Never Assessed Sex Assigned at Date Recorded Not on file documented as of this encounter Plan of Treatment Not on filedocumented as of this encounter Procedures Procedure Name Priority Date/Time Associated Diagnosis Comme nts HC CHEST ONE VIEW Routine 08/07/2004 10:45 PM Res ults for this NUMERICAL CONTROL MACHINE OPERATOR procedure are i n the results section. HC CT ANGIO HEAD Routine 08/07/2004 9:07 PM Resul ts for this WO&W CONTRAST NUMERICAL CONTROL MACHINE OPERATOR procedure are in the results section. documented in this encounter Results CHEST X-RAY 1 VW (08/07/2004 10:45 PM NUMERICAL CONTROL MACHINE OPERATOR) Anatomical Region Laterality Modality Other Specimen (Source) Anatomical Collection Method Collection Time Re ceived Time Location / / Volume Laterality 08/07/2004 10:45 PM NUMERICAL CONTROL MACHINE OPERATOR Impressions 08/08/2004 7:27 AM NUMERICAL CONTROL MACHINE OPERATOR AP chest x-ray dated 08/07/04 at 22: 41 hours. Clinical History: Brain aneurysm, pleura l effusion area Comparisons: None Findings: Chest: Heart and pulmonary vascularity a ppear normal. The lungs are clear. Impression: Normal AP chest x-ray. Nishant Earl MD GENERAL IMAGING CT ANGIO, HEAD (08/07/2004 9:07 PM NUMERICAL CONTROL MACHINE OPERATOR) Anatomical Region Laterality Modality Other Specimen (Source) Anatomical Collection Method Collection Time Re ceived Time Location / / Volume Laterality 08/07/2004 9:07 PM NUMERICAL CONTROL MACHINE OPERATOR Impressions 08/09/2004 10:04 AM NUMERICAL CONTROL MACHINE OPERATOR Noncontrast head CT and CT echogram of yuliana walsh [id number] on 08/07/2004. Comparison: Outside brain MRI from History: Intracranial aneurysm. Technique: Axial CT images of the head a nd skull base to vertex were acquired without intravenous contrast. F ollowing this, thin-section axial images of the head and skull base to the lateral ventricles were acquired during the cerebral arterial ph ase of intravenous contrast administration. The angiographic images were evident on the 3D workstation using shaded surface and max imum intensity projection display. Findings: Noncontrast head: The ventricles and bas al cisterns are unremarkable. There is no midline shift. There are no extra-axial fluid collections. There is no graphic evidence for acute i ntracranial hemorrhage. CT angiography images demonstrate a 6 x 5 mm aneurysm arising from the supraclinoid aspect of the left distal i nternal carotid artery. No other aneurysms are identified. 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 I have personally reviewed the image and initial interpretation and agree with the findings. Nishant Earl MD SPECIAL IMAGING STUDIES documented in this encounter Visit Diagnoses Not on filedocumented in this encounter
--- OUTSIDE RECORDS SUMMARY | 2022-06-04 08:37 | XMS_ITS | Encounter Summary ---
:1955 Author Organization [place] Address [address] [place] [address] Care Team Providers Name Role Phone Unavailable Primary Care Provider Unavailable Encounter Details Date Type Department Care Team Description 12/15/2004 Historic Results Neurology Clinic Skyler Byers MD Building 1st Floor, Clinic [address] [place] [address] [phone] Social History Tobacco Use Types Packs/Day Years Used Date Smoking Tobacco: Never Assessed Sex Assigned at Date Recorded Not on file documented as of this encounter Plan of Treatment Not on filedocumented as of this encounter Procedures Procedure Name Priority Date/Time Associated Diagnosis Comme nts PHENYTOIN FREE AND Routine 12/15/2004 2:45 PM Res ults for this TOTAL CDT procedure are i n the results section. PHENYTOIN LEVEL Routine 12/15/2004 2:45 PM Result s for this CDT procedure are i n the results section. documented in this encounter Results (ABNORMAL) Phenytoin total and free (12/15/2004 2:45 PM CDT) P athologist Signature Phenytoin Free <0.5 (L) 1.0 - 2.0 MISYS Level mg/L Phenytoin <6 (L) 6 - 13 % MISYS Percent Free Specimen Anatomical Collection Method Collection Time Receive d Time (Source) Location / / Volume Laterality 12/15/2004 2:45 PM 5 2:37 CDT PM CDT Skyler Byers MD LAB - BLOOD ORDERABLES Performing Organization Address City/State/ZIP Code Phon e Number [place] (ABNORMAL) Phenytoin level (12/15/2004 2:45 PM CDT) P athologist Signature Phenytoin 7.9 (L) 10 - 20 [place] Level mg/L Specimen Anatomical Collection Method Collection Time Receive d Time (Source) Location / / Volume Laterality 12/15/2004 2:45 PM 5 3:56 CDT PM CDT Skyler Byers MD LAB - BLOOD ORDERABLES Performing Organization Address City/State/ZIP Code Phon e Number [place] documented in this encounter Visit Diagnoses Not on filedocumented in this encounter
--- OUTSIDE RECORDS SUMMARY | 2022-06-04 08:37 | XMS_ITS | Encounter Summary ---
:1955 Author Organization [place] Address [address] [place] [address]. [place] [address] Care Team Providers Name Role Phone Unavailable Primary Care Provider Unavailable Encounter Details Date Type Department Care Team Description 08/12/2004 Historic Park Worker INTERFACED REPORT Moise Lewis MD Social History Tobacco Use Types Packs/Day Years Used Date Smoking Tobacco: Never Assessed Sex Assigned at Date Recorded Not on file documented as of this encounter Progress Notes Interface, Park Worker - 07/28/2011 5:06 AM LAMINA SEARCHER HISTORY OF PRESENT ILLNESS: The patient was admitted on 08/07/04 after being found down by her , unresponsive for roughly 10 minutes. She was brought by ambulance to [facility]. She had another generalized seizure there and was given Dilantin. She complained of some positional headache, some nausea, no vomiting. She denied any photophobia. There was no significant neck stiffness. 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 Head CT was negative. MRI was negative. She was admitted for evaluation of this lesion. ALLERGIES: No known drug allergies. PAST MEDICAL HISTORY: Status post cholecystectomy. HOSPITAL COURSE: She was evaluated by the Neurology service for seizure activity. She had an EEG, which revealed no clear seizure discharge. On exam, she remained alert and oriented. Her vitals are stable. No nuchal rigidity. No photophobia. Pupils equal, round, and reactive to light. Extraocular movements are intact. Patient's ......was at midline. She moved all extremities well. She underwent .....of her aneurysm on 08/09/04. She tolerated the procedure well and had an uneventful postoperative course. DISPOSITION: She was instructed to follow up with Neurology for .....seizures. She was instructed to followed up with Dr. Guan in 4 weeks, follow up in Neurology Clinic with Dr. Byers in 8 weeks. Regular activity. No heavy lifting greater than 10 weeks for 6 weeks. Resume her medications. No driving while taking narcotics. Return if pain or neurologic change. DISCHARGE MEDICATIONS: 1. Zantac 150 mg p.o. b.i.d. 2. Dilantin 300 mg p.o. q.h.s. DORYS GUAN MD Hand Reamer Department of Neurosurgery Dictated by: MOISE LEWIS MD MT: [email or web address] R/09/03/04/ Document: [id number] CC: MD DORYS GUTIERREZ MD SCOTT KOEHLER, MD FEI LU, MD LCN: [id number] DSC: 08/12/2004 Name: MR#: : Admit Date: Date: VARGAS DE OLIVEIRA -28 1955 08/07/2004 08/12/2004 DISCHARGE SUMMARY Page 2 of 2 NA SEARCHER documented in this encounter Plan of Treatment Not on filedocumented as of this encounter Visit Diagnoses Not on filedocumented in this encounter
--- OUTSIDE RECORDS SUMMARY | 2022-06-04 08:37 | XMS_ITS | Encounter Summary ---
:1955 Author Organization [place] Address [address] [place] [address]. [place] [address] Care Team Providers Name Role Phone Unavailable Primary Care Provider Unavailable Encounter Details Date Type Department Care Team Description 10/27/2004 Historic Human Resources Psychologist Neurology Clinic Yimi Hawk Phillips-Wangensteen MD Building 1st Floor, Clinic [address]A [address] [place] [address] Social History Tobacco Use Types Packs/Day Years Used Date Smoking Tobacco: Never Assessed Sex Assigned at Date Recorded Not on file documented as of this encounter Progress Notes Yimi Hawk MD - 07/28/2011 4:16 AM [facility] EEG #:[id number] CONDITIONS OF RECORDING: This electroencephalogram was obtained as a follow-up to previous. The patient had an aneurysm, bleed, and coiling done in 07/2004 and had 2 seizures related probably to the subarachnoid hemorrhage at that time. The electroencephalogram report from then was abnormal, showing sharp wave and slowing in the left temporal, as well as some more generalized slowing. This is a follow-up to consider whether to remove anticonvulsants. RESULTS: The electroencephalogram appears much improved as compared to previous. There area alpha activities bilaterally, generally of low voltage, but fairly symmetrical. Photic stimulation did produce probably a low voltage response. Occasional theta in the left temporal leads is present, and this is sharply contoured. No definite spikes are seen. Rare sharp wave over T3 and questionable T4 is present. CONCLUSION: This record is mildly abnormal, although substantially improved, as compared to previous acute record from the subarachnoid bleed. Left temporal slowing and rare sharp wave is persistent. The electroencephalogram is much improved as compared to previous, both for focal and generalized abnormalities. YIMI HAWK MD Dictated by: YIMI HAWK MD MT: [email or web address] Document: [id number] CC: YIMI HAWK MD LCN: [id number] DSC: 10/27/2004 Name: MR#: : Procedure Date: Age: VARGAS GIVENS -28 1955 10/27/2004 42 ELECTROENCEPHALOGRAPHY REPORT Page 1 of 1 ANIC HELPER documented in this encounter Plan of Treatment Not on filedocumented as of this encounter Visit Diagnoses Not on filedocumented in this encounter
--- OUTSIDE RECORDS SUMMARY | 2022-06-04 08:37 | XMS_ITS | Encounter Summary ---
:1955 Author Organization [place] Address [address] [place] [address]. [place] [address] Care Team Providers Name Role Phone Unavailable Primary Care Provider Unavailable Encounter Details Date Type Department Care Team Description 05/20/2005 Historic [facility] Yimi Bach Phillips-Wangensteen MD Building 1st Floor, Clinic [address] [place] [phone] Social History Tobacco Use Types Packs/Day Years Used Date Smoking Tobacco: Never Assessed Sex Assigned at Date Recorded Not on file documented as of this encounter Progress Notes Yimi Bach MD - 07/28/2011 1:19 AM [facility] EEG #:[id number]. CONDITIONS OF RECORDING: This electroencephalogram is a follow-up study on this 49-year-old patient with a history of subarachnoid hemorrhage. She has had previous EEG which had shown significant abnormalities diffusely and on the left side. This is a follow- up to that previous study. The patient was recorded and the EEG information was given to Dr. Earl. She had an aneurysm coil in July 2004. She was recorded during wakefulness and she is on Keppra. RESULTS: The electroencephalogram shows generally a low voltage record. There are alpha activities posteriorly of 10 Hz which are again of low voltage. Photic stimulation did produce a tenuous following response. Artifacts of movement and motor origin are seen throughout the study. Hyperventilation activation was not conducted. The patient was cognitive during the record. No gross abnormalities are seen on this record. EEG shows mostly awake activities. No temporal slowing or interictal transients are seen. CONCLUSION: This electroencephalogram is within normal limits. The abnormalities seen at the time of the acute subarachnoid hemorrhage have resolved. No evidence of seizure activity is seen. YIMI BACH MD Dictated by: YIMI BACH MD MT: [email or web address] Document: [id number] CC: YIMI BACH MD LCN: [id number] DSC: 05/20/2005 Name: MR#: : Procedure Date: Age: VARGAS DE OLIVEIRA -28 1955 05/20/2005 42 ELECTROENCEPHALOGRAPHY REPORT Page 1 of 1 D OPERATOR documented in this encounter Plan of Treatment Not on filedocumented as of this encounter Visit Diagnoses Not on filedocumented in this encounter
--- OUTSIDE RECORDS SUMMARY | 2022-06-04 08:37 | XMS_ITS | Encounter Summary ---
:1955 Author Organization [place] Address [address] [facility] [place] [address] Care Team Providers Name Role Phone Unavailable Primary Care Provider Unavailable Encounter Details Date Type Department Care Team Description 08/09/2004 Results Only [facility] Results Pedro Earl MD [address] [place] [address] (Wo rk) Social History Tobacco Use Types Packs/Day Years Used Date Smoking Tobacco: Never Assessed Sex Assigned at Date Recorded Not on file documented as of this encounter Plan of Treatment Not on filedocumented as of this encounter Procedures Procedure Name Priority Date/Time Associated Diagnosis Comme nts CT HEAD WO Routine 08/09/2004 11:47 AM Results for this CONTRAST CURVE SAW OPERATOR procedure are i n the results section. documented in this encounter Results CT SCAN HEAD/BRAIN (08/09/2004 11:47 AM CURVE SAW OPERATOR) Anatomical Region Laterality Modality Other Specimen (Source) Anatomical Collection Method Collection Time Re ceived Time Location / / Volume Laterality 08/09/2004 11:47 AM CURVE SAW OPERATOR Impressions 08/10/2004 7:[address] of the Head without contrast History: Aneurysm, evaluate for subarach noid blood Comparison: 08/07/04 Technique: Axial CT images of the head w ere obtained at 4.5 mm intervals from the base of the skull to the vertex without intravenous contrast and reviewed in brain, subdural , and bone windows. Findings: There is no acute or subacute hemorrhage. There is a new metallic density in the left supraclinoi d region corresponding to the coiled supraclinoid internal carotid ane urysm. These images demonstrate no evident mass lesion, mass effect, midline shift or abnormal extraaxial fluid collection. Th e ventricles and sulci are within normal for age. Mcfarland-white differ entiation is intact throughout both cerebral hemispheres. ??The bony ca lvaria and the bones of the skull base appear normal. The mastoid ai r cells and paranasal sinuses are clear. Impression: 1. No acute intracranial pathology ident ified. 2. New metallic coils in supraclinoid le ft internal carotid artery aneurysm. I have personally reviewed the image and initial interpretation and agree with the findings. Nishant Earl MD SPECIAL IMAGING STUDIES documented in this encounter Visit Diagnoses Not on filedocumented in this encounter
--- OUTSIDE RECORDS SUMMARY | 2022-06-04 08:37 | XMS_ITS | Encounter Summary ---
:1955 Author Organization [place] Address [address] [facility] [place] [address] Care Team Providers Name Role Phone Unavailable Primary Care Provider Unavailable Encounter Details Date Type Department Care Team Description 08/11/2004 Results Only [facility] Results Pedro Earl MD [address] [place] [address] (Wo rk) Social History Tobacco Use Types Packs/Day Years Used Date Smoking Tobacco: Never Assessed Sex Assigned at Date Recorded Not on file documented as of this encounter Plan of Treatment Not on filedocumented as of this encounter Procedures Procedure Name Priority Date/Time Associated Comments Diagnosis HC US TRANSCRANIAL Routine 08/11/2004 10:23 Resul ts for this DOPPLER, COMPLETE AM ARMY HELICOPTER PILOT procedure are in the results section. documented in this encounter Results TRANSCRAN DOPPLER INTRACRAN ART (08/11/2004 10:23 AM ARMY HELICOPTER PILOT) [facility] Method Time Signature IMAGECAST RESULT Transcranial Doppler ultrasound dated August 11, 2004. There is history of coils placed in the left internal caroti d artery aneurysm. We have no previous studies available for comparis on. Findings: The peak mean systolic velocity in the right middle cerebral artery is 55 cm/sec. We cannot identify the right internal carotid art agnelita, posterior cerebral artery or anterior cerebral artery well e nough to evaluate them. The mean systolic velocity in the left international relations professor al carotid artery at 62 cm/sec. Note however the this was a limited exa mination for the left internal carotid artery as it was difficult to see. The peak mean systolic velocity in the left middle cerebral cinda ry at 76 cm/sec. Mean systolic velocity in the left anterior cerebral artery is 66 cm/sec. The mean systolic velocity in the posterior cereb ral artery on the left side at 30 cm/sec. Impression Limited examination of the right side as above as the right internal carotid artery, posterior and anterior cerebral arteries wer e not identified to evaluate them. For the right middle cerebral a rtery there is no evidence for vasospasm based on mean systolic ve locities Based on the mean systolic velocities, on left-side, no evid ence for vasospasm in the left internal carotid artery (limited study however), left middle cerebral artery, left anterior cerebral artery a nd left posterior cerebral artery. Specimen (Source) Anatomical Collection Method Collection Time Re ceived Time Location / / Volume Laterality 08/11/2004 10:23 AM ARMY HELICOPTER PILOT Nishant Earl MD PROCEDURES documented in this encounter Visit Diagnoses Not on filedocumented in this encounter
[2022-06-04 11:31] LABS: Cholesterol* 189 mg/dL (90-199); Glucose* 114 mg/dL (60-115); HDL Cholesterol* 40 mg/dL (>=50); LDL Cholesterol Calculated 111 mg/dL (<100); Triglycerides* 190 mg/dL (40-149)
== END 2022-06-04 15:14 | disposition home or self-care (01) ==
PROVIDERS: PCP Internal Medicine; Visit Provider Internal Medicine
DX: Z01.419 Encounter for gynecological examination (general) (routine) without abnormal findings (principal); E78.5 Hyperlipidemia, unspecified; E66.9 Obesity, unspecified; R73.03 Prediabetes
CPT/HCPCS: 80061; 82947

== ENCOUNTER 2022-08-20 13:39 | Outpatient (CLI) | payer MEDICARE, SELFPAY ==
--- NOTE | 2022-08-20 14:00 | CRLHL7_ITS ---
For Patients: As a result of the Century Cures Act, medical imaging exams and procedure reports are released immediately into your electronic medical record. You may view this report before your referring provider. If you have questions, please contact your health care provider. BILATERAL SCREENING MAMMOGRAM WITH COMPUTER-AIDED DETECTION AND TOMOSYNTHESIS TECHNIQUE: CC and MLO views were obtained. These mammographic images have been obtained using full-field digital technique. These mammographic images were interpreted with the benefit of computer-aided detection. Breast Tomosynthesis was used in this interpretation. COMPARISON FILM: 12/25/20, 10/19/19, 07/10/18. FINDINGS: There are scattered areas of fibroglandular density IMPRESSION: There is no radiographic evidence for malignancy. ASSESSMENT: BI-RADS Category 1: Negative RECOMMENDATION: Routine screening mammogram in 1 year. A lay language report of this examination will be provided to the patient. Rich Zhu M.D. Diagnostic Radiologist [email or web address] MELISSA/[email or web address] alvarado/Dictated by: Rich Zhu MD @ 08/25/2022 12:35:00 PM (Electronically Signed)
== END 2022-08-20 13:40 | disposition home or self-care (01) ==
LOC: MAMMO 13:39
PROVIDERS: PCP Internal Medicine; Visit Provider Internal Medicine
DX: Z12.31 Encounter for screening mammogram for malignant neoplasm of breast (principal)
CPT/HCPCS: 77063; 77067

== ENCOUNTER 2023-06-14 08:15 | Outpatient (CLI) | payer MEDICARE, BC, SELFPAY | END 2023-06-14 08:16 | disposition home or self-care (01) | LOC: NFLDREF 06-17 06:25 | PROVIDERS: PCP Internal Medicine; Referring Provider Internal Medicine; Visit Provider Internal Medicine | DX: E78.5 Hyperlipidemia, unspecified (principal); R73.03 Prediabetes | CPT/HCPCS: 80061; 82947 ==

== ENCOUNTER 2023-08-10 08:45 | Outpatient (RCR) | payer MEDICARE, BC, SELFPAY ==
--- NOTE | 2023-07-11 14:09 | PT.OPEX ---
PT [place] Outpatient Eval PT [facility] Outpatient Eval Start: 07/07/23 07:57 Freq: Status: Active Protocol: Document 07/07/23 08:00 HN (Rec: 07/07/23 15:44 HN [id number]) E-signed By Sivan Dang DPT Physical Therapy Outpatient Evaluation Insurance Information Recert Due Date 10/04/23 Insurance Name [facility] Insurance Information/Comments Medicare [facility] Medical Diagnosis m17.11 Unilateral primary osteoarthritis, right knee. Treating Diagnosis m17.11 Unilateral primary osteoarthritis, right knee. Referring MD Luis A Hirsch MD Subjective Subjective Patient is a 67 year old female with R knee pain with onset 2 months prior with insidious onset. Denies numbness and tingling, Pain characteristics: stabbing and hot along anterior knee distal to patella, intermittent, better in the AM, worse in the PM Aggravating factors: vacuuming , sweeping, sometimes biking, worse with increasing, ascending/descending stairs reciprocally, prolonged walking Easing Factors: heating, arthritis tylenol, aleve in morning, occasionally takes ibuprofen Prior level of function: unlimited and independent with ADLs and IADLs Current limitations: vacuuming , sweeping, sometimes biking, worse with increasing, ascending/descending stairs reciprocally, prolonged walking Imaging: Weightbearing AP, Lateral and [place] views of the right knee were obtained today from [facility] , were ordered and reviewed by me, and show mild-moderate patellofemoral knee osteoarthritis seen by slight joint space narrowing of 33+%, and small to moderate sized osteophytosis especially patellofemoral compartment. No acute fractures avulsions. No signs of AVN PMH: pre diabetes, high cholesterol managed with meds, endometrial cancer s/p hysterectomy, yearly checkes, also reports kidney issues, hx history brain aneurysm Social History: , retired, lives , multistory, 13 steps, enjoys doing puzzles, taking care of home, rides 2 miles on recumbent bike Pain Comments Current: 0/10 Best: 0/10 Worst: 5-6/10 Current Work Status Retired Preferred Name [employer] Precautions Weight Bearing Status Full Weight Bearing Therapy Limitations/Systems Review Not Limited Objective Other/Pertinent Objective Range of motion (degrees): Hip range of motion is grossly intact bilaterally Knee flexion: 125 L/ 120 R Knee extension: 0 L/ 2 R Manual muscle testing: Hip flexion: 5/5 L , 5/5 R Hip abduction: 3/5 L , 3/5 R Knee extension: 4/5 L , 4/5 R Knee flexion: 4/5 L , 4/5 R Ankle DF: 5/5 L , 5/5 R Ankle PF: 5/5 L , 5/5 R ( seated) Special tests: Anterior drawer: negative Posterior drawer: negative Valgus: negative Varus: negative Apley's positive for increased pain on R Squat: increased pain on R with squat, demonstrated decreased depth Step down test: positive increased pain Joint mobility: mild hypomobility in patella Palpation: increased tenderness along patellar fat pad, with hip mobilizations, in middle quadriceps Functional Test Performed & Score 50/80= 62.5 % Assessment Assessment/Impression Patient is a 67 year old with complaints of R knee pain with insidious onset 2 month prior Patient demonstrates impaired mild R knee range of motion deficits, decreased strength, and increased pain consistent with patellofemoral pain syndrome with potential contributions from osteoarthritis and meniscus . The impairments impact the patients transfers, ambulation , stair and curb navigation and participation in ADLs and IADLs, Patient will benefit from skilled physical therapy to address the impairments and activity limitations listed above. Primary Functional Limitations transfers, ambulation, stair and curb navigation and participation in ADLs and IADLs, Plan of Care Rehabilitation Potential Good Physical Therapy Goals long term care phlebotomist goals 09/29/23 1. Patient will demonstrate Lower extremity function score improvement of to 60/80 or greater point to demonstrate decreased pain and disability related to symptoms 2. Patient will report <4/10 at worst pain in order to demonstrate decreased pain and disability related to symptoms 3. Patient will demonstrate independence with HEP in order to decrease knee pain and improve knee strength 4. Patient will ascend/descend 1 flight of stairs with no increase in pain in order improve tolerance with IADLs. 5. Patient will tolerate vacuuming/sweeping with no increase in knee pain in order perform IADLs. 6. Patient will tolerate walking 1 hour or more with no increase in pain in order to tolerate ADLs and IADLs. Coordination/Communication With Referral Source Treatment Plan/Direct Interventions Gait Training,Joint Mobilization,Manual Therapy, Neuromuscular Re-ed,Self-Care/ Home Management,Therapeutic Activities,Therapeutic Exercises Frequency/Duration 1x/week for 10-12 weeks Patient Will Be Discharged From Therapy Completion of LTG(s) Evaluation Billing Untimed Code Treatment Minutes 20 Complexity Low Certification Information Initial Certification Date 07/07/23 Ending Certification Date 10/04/23 Provider Signature Shows Agreement With POC & Medical Necessity Physician Signature & Date Requested Please Sign/Date Here Physician Comment/Change : Physician NPI Number #
== END 2023-12-08 23:59 | disposition home or self-care (01) ==
PROVIDERS: PCP Internal Medicine; Visit Provider Orthopaedic Surgery Sports Medicine
DX: M17.11 Unilateral primary osteoarthritis, right knee (principal); Z51.89 Encounter for other specified aftercare
CPT/HCPCS: 97110; 97140; 97161

== ENCOUNTER 2023-10-13 09:57 | Outpatient (CLI) | payer MEDICARE, BC, SELFPAY ==
--- NOTE | 2023-10-13 10:15 | MM_ITS ---
Patient: VARGAS GIVENS Facility:?[facility] RIS Patient ID:?[id number] Site Patient ID:?[id number]. Site :?[id number] Study:?XRay-Breast Bilateral 3D W/CAD-10/13/2023 10:33:48 AM Ordering Physician:Flower Osullivan Final Report: BILATERAL SCREENING MAMMOGRAM WITH COMPUTER-AIDED DETECTION AND TOMOSYNTHESIS TECHNIQUE: CC and MLO views were obtained. These mammographic images have been obtained using full-field digital technique. These mammographic images were interpreted with the benefit of computer-aided detection. Breast Tomosynthesis was used in this interpretation. COMPARISON FILM: 08/20/22, 12/25/20, 10/19/19. FINDINGS: There are scattered areas of fibroglandular density. IMPRESSION: There is no radiographic evidence for malignancy. ASSESSMENT: BI-RADS Category 1: Negative RECOMMENDATION: Routine screening mammogram in 1 year. A lay language report of this examination will be provided to the patient. Skyler Rocha M.D. Diagnostic/Nuclear Medicine Radiologist [email or web address] KYAW/[email or web address] R& Transcribed: 2:18 pm SP/Dictated by: Skyler Rocha MD @ 10/13/2023 11:43:00 AM Signed by:Vernell Rocha MD @10/13/2023 3:31:41 PM (Electronic Signature)
== END 2023-10-13 09:58 | disposition home or self-care (01) ==
LOC: MAMMO 09:58
PROVIDERS: PCP Internal Medicine; Visit Provider Internal Medicine
DX: Z12.31 Encounter for screening mammogram for malignant neoplasm of breast (principal)
CPT/HCPCS: 77063; 77067

== ENCOUNTER 2024-07-02 10:11 | Outpatient (CLI) | payer MEDICARE, BC, SELFPAY ==
--- OUTSIDE RECORDS SUMMARY | 2024-07-02 10:25 | XMS_ITS | Continuity of Care Document ---
Author Organization [facility] Address [address] [place] [address] [address] [place] [address] Phone Care Team Providers Care Sand Mixer Name Role Phone Unavailable Unavailable Unavailable Procedures Procedure Date Office/Outpatient Visit,[facility] 2011 Advance Directives Directive Yes / No Effective Date File Name No Information Encounters Encounter Description Practice Location Reason(s) For Visit Diagnoses Date Provider Providers Copied on Encounter [facility], [address] [place] [address] [address], [place], [address], [place] tel:[phone] [address] No Information 2 No Information Office/Outpat ient Visit,[facility], [facility], [address] [place], [place] [address], [place], [address], [place] tel:[phone] [address] No Information 2 Mehbod Amir. [facility], [address] [place] [address] [address], [place], [place], [id number], [place]. tel:[phone] Family History Family Member Type Diagnosis Age At Onset No Information Payers Payer name Insurance type Covered green party ID Authorludwiga tidonya(s) [facility] [id number] Social History Type Description Quantity Date Captured Comments Sex Female Smoking Status No Information Chief Complaint And Reason For Visit No Information Reason For Referral Reason For Referral No Information History Of Present Illness Encounter Date Complaint History Of Prese nt Illness No Information Functional Status Date Functional Assessmen t No Information Instructions Date Instruction Additional Infor mation No Information Assessments Type Assessment Date No Information Patient Care Teams Name Effective Dates (start - stop) Status Members No Information
--- OUTSIDE RECORDS SUMMARY | 2024-07-02 10:25 | XMS_ITS | Clinical Summary ---
Author Organization [facility] Address [place], [place] [address] Care Team Providers Care Senior Procurement Manager Name Role Phone Unknown, Doctor Primary Care Provider Unavailabl e Allergies Active Allergy Reactions Criticality Noted Date Comments Codeine Hives,Itching 11/18/2006 Morphine 11/18/2006 Feels like bugs crawling on her. 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/18/2006): Cerebral 07/2004 Immunizations Name Administration Dates Next Due AMB Influenza, IIV3 (Age >=3 years)([facility]) 06/19/2008 Social History Tobacco Use Types Packs/Day Years Used Date Smoking Tobacco: Never Comments:passive when a chil d Alcohol Use Standard Drinks/Week Comments No 0 (1 standard drink = 0.6 oz pur e alcohol) Sex and Gender Information Value Date Recorded Sex Assigned at Not on file Gender Identity Not on file Sexual Orientation Not on file Obstetrics History Last Filed Vital Signs Vital Sign Reading Time Taken Comments Blood Pressure 125/80 04/12/2012 2:01 PM CDT Pulse 80 04/12/2012 2:01 PM CDT Temperature 36.6 ??C (97.9 ??F) 04/12/2012 2:01 PM CD T Respiratory Rate - - Oxygen Saturation 96% 12/03/2009 1:18 PM CDT Inhaled Oxygen Concentration - - Weight 109.3 kg (241 lb) 04/12/2012 2:01 PM CDT Height - - Body Mass Index - - Plan of Treatment Health Maintenance Due Date Last Done Comments Tdap 1965 Depression screening for age 12+ 1966 BMI (ht and wt on same day) for age 18+ 1972 Hepatitis C screening for age 18-79 1972 Tetanus booster 1974 Colonoscopy through age 75 12/17/1999 Lipids for age 45-75 12/17/1999 Mammogram for age 45-75 12/17/1999 Zoster (shingles) series for age 50+ (1 of 2) 12/17/19 05 DEXA/DXA scan for age 65+ 12/17/2019 Pneumococcal series for age 65+ (1 of 1 - PCV) 020 COVID-19 vaccine series ( - 2023- season) 4 Influenza for age 65+ 04/22/2024 06/19/2008 Care Teams Senior Procurement Manager Relationship Specialty Start Date End Date Unknown, Doctor . PCP - General 10/13/06
--- OUTSIDE RECORDS SUMMARY | 2024-07-02 10:25 | XMS_ITS | Clinical Summary ---
Author Organization [facility] Address [address] [place] [address] Care Team Providers Care Netting Weaver Name Role Phone Flower Curtis MD Primary Care Provider Allergies Active Allergy Reactions Criticality Noted Date Comments Morphine Rash Low 02/01/2018 Medications SIMVASTATIN PO Take 10 mg by mouth Active multivitamin, therapeutic with minerals (MULTI-VITAMIN) TABS tablet Take 1 tablet by mouth daily Active ASPIRIN PO Take 81 mg by mouth daily Active Social History Tobacco Use Types Packs/Day Years Used Date Smoking Tobacco: Never Smokeless Tobacco: Never Comments No Sex and Gender Information Value Date Recorded Sex Assigned at Not on file 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
--- OUTSIDE RECORDS SUMMARY | 2024-07-02 10:25 | XMS_ITS | Referral Summary ---
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
== END 2024-07-02 10:12 | disposition home or self-care (01) ==
PROVIDERS: PCP Internal Medicine; Visit Provider Internal Medicine
DX: R73.03 Prediabetes (principal); E78.5 Hyperlipidemia, unspecified; E66.9 Obesity, unspecified; M85.80 Other specified disorders of bone density and structure, unspecified site
CPT/HCPCS: 80061; 82306; 82947

== ENCOUNTER 2024-11-13 09:06 | Outpatient (CLI) | payer MEDICARE, BC, SELFPAY ==
--- NOTE | 2024-11-13 09:15 | CRLHL7_ITS ---
For Patients: As a result of the Century Cures Act, medical imaging exams and procedure reports are released immediately into your electronic medical record. You may view this report before your referring provider. If you have questions, please contact your health care provider. BILATERAL SCREENING MAMMOGRAM WITH COMPUTER-AIDED DETECTION AND TOMOSYNTHESIS TECHNIQUE: CC and MLO views were obtained. These mammographic images have been obtained using full-field digital technique. These mammographic images were interpreted with the benefit of computer-aided detection. Breast tomosynthesis was used in this interpretation. COMPARISON FILM: 10/13/20, 08/20/22, 12/25/20. FINDINGS: There are scattered areas of fibroglandular density. IMPRESSION: There is no radiographic evidence for malignancy. ASSESSMENT: BI-RADS Category 1: Negative RECOMMENDATION: Routine screening mammogram in 1 year. A lay language report of this examination will be provided to the patient. RICH DEL ANGEL M.D. Diagnostic Radiologist [email or web address] MELISSA/[email or web address] Transcribed: 11/19/2024, 5:[address]/Dictated by: Rich Del Angel MD @ 11/19/2024 12:31:00 PM (Electronically Signed)
== END 2024-11-13 09:07 | disposition home or self-care (01) ==
LOC: MAMMO 09:07
PROVIDERS: PCP Internal Medicine; Visit Provider Internal Medicine
DX: Z12.31 Encounter for screening mammogram for malignant neoplasm of breast (principal)
CPT/HCPCS: 77063; 77067